=== PATIENT | male | born 1975 | race Caucasian/White ===

== ENCOUNTER 2017-03-05 19:01 | Emergency (ER) | payer MEDICARE, MEDICAID ==
[~2017-03-05] VITALS: Ht 144.8 cm; Wt 104.3 kg
[~2017-03-05 19:01] MED LIST changes: -ALB6.7R INH; -AMOX875T60 PO; -HYDR-4225 PO
--- NOTE | 2017-03-05 19:01 | ER Report ---
History and Physical Time Seen By MD: 19:00 HPI/ROS CHIEF COMPLAINT: Dizziness HISTORY OF PRESENT ILLNESS: 41-year-old male presents by ambulance complaining of dizziness. Patient has past medical history of COPD. Anxiety,? Schizophrenia. He is a frequent visitor our ER, but hasn't been into the department for 6 months. Patient has difficulty expressing his symptoms tonight. He has a mild headache. He denies shortness of breath, cough, rhinitis or sore throat. He denies chest pain. He denies leg swelling or calf pain. He is complaining of dizziness for the ambulance. Initially the ambulance call went out as a panic attack related to overdosing on fentanyl. When asked if having any specific symptoms. Patient is unable to relate any. He is reluctant to lie in the bed for evaluation. He wants to ambulate about the room. Patient's other complaint is he is unable to sleep. Patient states she's been out of his inhaler for months. REVIEW OF SYSTEMS: Respiratory: No cough, no dyspnea. Cardiovascular: No chest pain, no palpitations. Gastrointestinal: No vomiting, no abdominal pain. Musculoskeletal: No back pain. Allergies: Coded Allergies: No Known Drug Allergies (Unverified , 03/05/17) Home Meds Active Scripts Amoxicillin (AMOXICILLIN) 875 Mg Tablet, 1 TAB PO Q12H for infection, #14 TAB Prov:GISELLA ROSSI DO 03/05/17 Albuterol Sulfate (PROVENTIL HFA) 6.7 Gm Inh, 2 PUFF INH Q4-6H Y for difficulty breathing, #1 INH Prov:GISELLA ROSSI Omer DO 03/05/17 Hydroxyzine Hcl (HYDROXYZINE HCL) 25 Mg Tablet, 1-2 TAB PO Q6-8H Y for anxiety or sleep, #20 Prov:GISELLA ROSSI DO 03/05/17 Tramadol Hcl (ULTRAM) 50 Mg Tablet, 50-100 MG PO Q4-6H Y for PAIN, #20 TAB 0 Refills Prov:VIET GAINES MD 08/02/16 Omeprazole (OMEPRAZOLE) 40 Mg Capsule., 40 MG PO QDAY, #30 CAP 0 Refills Prov:GORDON GUTIERREZ MD 07/07/16 Past Medical/Surgical History COPD, anxiety Reviewed Nurses Notes: Yes Old Medical Records Reviewed: Yes Hx Smoking: Yes Smoking Status: Current: Every Day Smoker Hx Substance Use Disorder: No Hx Alcohol Use: No Constitutional Vital Sign - Last 24 Hours 03/05/17 19:04 Temp 97.6 Pulse 105 Resp 16 B/P (MAP) 151/99 Pulse Ox 93 O2 Delivery Room Air Physical Exam Vital signs stable, afebrile, pulse ox normal. General Appearance: The patient is alert, has no immediate need for airway protection and no current signs of toxicity. No acute distress, alert and oriented 3 HEENT: Pupils equal and round no injection. TMs normal, oropharynx with mild erythema, no exudate or petechiae Respiratory: Chest is non tender, lungs are clear to auscultation. Faint expiratory wheezing Cardiac: regular rate and rhythm Gastrointestinal: Abdomen is soft and non tender, no masses, bowel sounds normal. Musculoskeletal: Neck: Neck is supple and non tender. Extremities have full range of motion and are non tender. Skin: No rashes or lesions. DIFFERENTIAL DIAGNOSIS: After history and physical exam differential diagnosis was considered for? Schizophrenia, mood disorder, anxiety, COPD exacerbation, dizziness including but not limited to peripheral and central causes of vertigo , orthostatic causes including dehydration, and blood loss. Medical Decision Making Data Points Result Diagram: 03/05/17191903/05/171919 Laboratory Hematology Test 03/05/17 19:20 Red Blood Count 5.14 M/uL (4.00-5.60) Mean Corpuscular Volume 89.8 fL (80.0-96.0) Mean Corpuscular Hemoglobin 31.6 pg (26.0-33.0) Mean Corpuscular Hemoglobin Concent 35.2 g/dL (32.0-36.0) Red Cell Distribution Width 13.4 % (11.5-14.5) Mean Platelet Volume 9.3 fL (7.2-11.1) Neutrophils (%) (Auto) 64.5 % (39.4-72.5) Lymphocytes (%) (Auto) 24.6 % (17.6-49.6) Monocytes (%) (Auto) 6.5 % (4.1-12.4) Eosinophils (%) (Auto) 3.1 % (0.4-6.7) Basophils (%) (Auto) 1.3 % (0.3-1.4) Nucleated RBC Relative Count (auto) 0.0 /100WBC Neutrophils # (Auto) 9.5 K/uL (2.0-7.4) Lymphocytes # (Auto) 3.6 K/uL (1.3-3.6) Monocytes # (Auto) 1.0 K/uL (0.3-1.0) Eosinophils # (Auto) 0.5 K/uL (0.0-0.5) Basophils # (Auto) 0.2 K/uL (0.0-0.1) Nucleated RBC Absolute Count (auto) 0.01 K/uL Sodium Level 139 mmol/L (137-145) Potassium Level 3.6 mmol/L (3.5-5.0) Chloride Level 105 mmol/L (98-107) Carbon Dioxide Level 22 mmol/L (22-30) Blood Urea Nitrogen 11 mg/dl (9-21) Creatinine 0.90 mg/dl (0.66-1.25) Glomerular Filtration Rate Calc > 60.0 Random Glucose 120 mg/dl (75-110) Calcium Level 9.4 mg/dl (8.4-10.2) Total Bilirubin 0.3 mg/dl (0.2-1.3) Aspartate Amino Transf (AST/SGOT) 18 U/L (0-35) Alanine Aminotransferase (ALT/SGPT) 41 U/L (0-56) Alkaline Phosphatase 76 U/L (0-126) Total Protein 7.1 gm/dl (6.3-8.2) Albumin 4.1 g/dl (3.5-5.0) Chemistry Test 03/05/17 19:20 White Blood Count 14.7 k/uL (4.5-11.0) Red Blood Count 5.14 M/uL (4.00-5.60) Hemoglobin 16.3 g/dL (14.0-18.0) Hematocrit 46.2 % (42.0-52.0) Mean Corpuscular Volume 89.8 fL (80.0-96.0) Mean Corpuscular Hemoglobin 31.6 pg (26.0-33.0) Mean Corpuscular Hemoglobin Concent 35.2 g/dL (32.0-36.0) Red Cell Distribution Width 13.4 % (11.5-14.5) Platelet Count 199 K/uL (150-450) Mean Platelet Volume 9.3 fL (7.2-11.1) Neutrophils (%) (Auto) 64.5 % (39.4-72.5) Lymphocytes (%) (Auto) 24.6 % (17.6-49.6) Monocytes (%) (Auto) 6.5 % (4.1-12.4) Eosinophils (%) (Auto) 3.1 % (0.4-6.7) Basophils (%) (Auto) 1.3 % (0.3-1.4) Nucleated RBC Relative Count (auto) 0.0 /100WBC Neutrophils # (Auto) 9.5 K/uL (2.0-7.4) Lymphocytes # (Auto) 3.6 K/uL (1.3-3.6) Monocytes # (Auto) 1.0 K/uL (0.3-1.0) Eosinophils # (Auto) 0.5 K/uL (0.0-0.5) Basophils # (Auto) 0.2 K/uL (0.0-0.1) Nucleated RBC Absolute Count (auto) 0.01 K/uL Glomerular Filtration Rate Calc > 60.0 Calcium Level 9.4 mg/dl (8.4-10.2) Total Bilirubin 0.3 mg/dl (0.2-1.3) Aspartate Amino Transf (AST/SGOT) 18 U/L (0-35) Alanine Aminotransferase (ALT/SGPT) 41 U/L (0-56) Alkaline Phosphatase 76 U/L (0-126) Total Protein 7.1 gm/dl (6.3-8.2) Albumin 4.1 g/dl (3.5-5.0) EKG/Imaging EKG Interpretation 12 lead EK Rhythm: normal sinus rhythm with RSR in V1 suggesting incomplete [place] arrest block [place]: normal QRS: normal ST segments: normal , comparison to previous EKG dated 05/15/16. There is no significant change except now there is diffuse T-wave flattening noted. ED Course/Re-evaluation ED Course Patient was admitted to an examination room. H&P was done. The dental diagnoses was considered. Patient was stable vital signs. He has a variety of complaints, most seems psychosomatic. I suspect his illness is primarily mental health in nature. Patient may be bipolar manic or schizophrenic. He frequently presents to the ER with complaints that are spurious. He does have a history of COPD. He denies shortness of breath, productive cough or chest pain. Clinical examination. He has a fairly red and erythematous. Throat. He 'll be covered with amoxicillin for potential pharyngitis. Patient's albuterol inhalers refilled. He is given hydroxyzine for to help him sleep. He is advised to follow-up with primary care if unimproved in 3-5 days. Decision to Disposition Date: Mar 05, 2017 Decision to Disposition Time: 19:17 Depart Departure Latest Vital Signs Vital Signs Date Time Temp Pulse Resp B/P (MAP) Pulse Ox O2 Delivery O2 Flow Rate FiO2 03/05/17 19:04 97.6 105 16 151/99 93 Room Air Impression: Primary Impression: Dizziness Additional Impressions: Anxiety Pharyngitis COPD exacerbation Insomnia Mental health disorder Condition: Improved Disposition: HOME OR SELF-CARE Referrals: EMPERATRIZ MIN MD, FARRUKH MD New Scripts Amoxicillin (AMOXICILLIN) 875 Mg Tablet 1 TAB PO Q12H for infection, #14 TAB Prov: GISELLA ROSSI DO 03/05/17 Albuterol Sulfate (PROVENTIL HFA) 6.7 Gm Inh 2 PUFF INH Q4-6H Y for difficulty breathing, #1 INH Prov: GISELLA ROSSI DO 03/05/17 Hydroxyzine Hcl (HYDROXYZINE HCL) 25 Mg Tablet 1-2 TAB PO Q6-8H Y for anxiety or sleep, #20 Prov: GISELLA ROSSI DO 03/05/17 Patient Instructions: Anxiety (ED), Insomnia (ED), Pharyngitis (ED) Additional Instructions: Take medications as prescribed Follow-up with your primary care doctor if unimproved in 3-5 days Problem Qualifiers Additional Impressions: Pharyngitis Pharyngitis/tonsillitis etiology: unspecified etiology Qualified Codes: J02.9 - Acute pharyngitis, unspecified Insomnia Insomnia type: unspecified Qualified Codes: G47.00 - Insomnia, unspecified GISELLA ROSSI DO Mar 05, 2017 19:01
[2017-03-05 19:04] VITALS: BP 151/99
[2017-03-05] MEDS ORDERED: ALBUTEROL SULFATE 90 MCG/ACT 8.5 GM HNH INH PRN (19:15)
[2017-03-05] MEDS ORDERED: HYDR-4225 PO (19:22)
[2017-03-05 19:27] LABS: PLATELET COUNT, AUTOMATED 199 K/uL (150-450)
[2017-03-05] MEDS ORDERED: ALB6.7R INH (19:38)
[2017-03-05] MEDS ORDERED: AMOX875T60 PO (19:38)
--- NOTE | 2017-03-05 21:13 | EKG ---
FACILITY: [facility] - [place] PATIENT NAME: VIET PERAZA : [id number] MR: [id number] V: [id number] EXAM DATE: ORDERING PHYSICIAN: GISELLA ROSSI TECHNOLOGIST: BALDO Test Reason : DYSPNEA Blood Pressure : / mmHG Vent. Rate : 096 BPM Atrial Rate : 096 BPM P-R Int : 126 ms QRS Dur : 084 ms QT Int : 370 ms P-R-T Axes : 048 048 039 degrees QTc Int : 467 ms Normal sinus rhythm Borderline ECG When compared with ECG of 15-MAY-2016 16:56, No significant change was found Confirmed by ROSA MARIA OH ([id number]) on 03/06/2017 8:57:48 AM Referred By: Confirmed By:ROSA MARIA OH
== END 2017-03-05 19:57 | disposition home or self-care (01) ==
LOC: ER 19:05
DX: J02.9 Acute pharyngitis, unspecified (principal); G47.00 Insomnia, unspecified; R42 Dizziness and giddiness; F41.9 Anxiety disorder, unspecified; J44.1 Chronic obstructive pulmonary disease with (acute) exacerbation
CPT/HCPCS: 36415; 82040; 82247; 82310; 82374; 82435; 82565; 82947; 84075; 84132; 84155; 84295; 84450; 84460; 84520; 85025; 93005; 94640; 99283

== ENCOUNTER → 2017-03-05 | Outpatient (CLI) | payer MEDICARE, MEDICAID ==
[~2017-03-05] MED LIST: ALB18R INH; ALB6.7R INH; ALBU2.5V36 INH; AMOX500T10 PO; AMOX875T60 PO; BUDE10.2 INH; HYDR-4225 PO; METR-1 PO; OMEP-137 PO; OMEP40CA48 PO; TRAM-420 PO; TRAM-627 PO; [UNRECOGNIZED DRUG - CODE] TP
== END ==
LOC: AMB 18:46
PROVIDERS: ATTEND Nurse Practitioner
DX: R42 Dizziness and giddiness (principal)
CPT/HCPCS: A0425; A0427

== ENCOUNTER → 2017-04-18 | Outpatient (CLI) | payer MEDICARE, MEDICAID ==
[~2017-04-18] MED LIST changes: +ALB6.7R INH; +AMOX875T60 PO; +HYDR-4225 PO
== END ==
LOC: US 13:54
PROVIDERS: ATTEND Family Medicine
DX: Z02.9 Encounter for administrative examinations, unspecified (principal)

== ENCOUNTER → 2017-04-20 | Outpatient (CLI) | payer MEDICARE, MEDICAID ==
--- NOTE | 2017-04-20 17:16 | RADIOLOGY IMAGING REPORT ---
FACILITY: [facility] PATIENT NAME: Mao Aden : 1975 MR: [id number] V: [id number] EXAM DATE: ORDERING PHYSICIAN: HARSHAL JJ TECHNOLOGIST: Location: [facility] Patient: Mao Aden : 1975 Visit/Account:[id number] Date of Sevice: 04/20/2017 TESTICULAR HISTORY: Testicular pain x2 weeks COMPARISON: None. FINDINGS: Testes: Right testicle measures 4.6 x 2.9 x 3.4 cm. The left testicle measures 5.5 x 2.1 x 3.8 cm. Symmetric and unremarkable blood flow documented by color and Duplex Doppler ultrasound. Epididymides: The head epididymis on the right measures 0.83 cm. The head appearance on the left elizabeth sures 1.1 cm and appears slightly hypervascular and inhomogeneous. Blood flow is unremarkable in eac h epididymis by color Doppler ultrasound. Hydrocele: None. Varicocele: There is a left-sided varicocele. IMPRESSION: Left-sided varicocele The head epididymis on the left slightly hypervascular and inhomogeneous. Epididymitis cannot be tot ally excluded Report Dictated By: Olivia Harris MD at 04/20/2017 5:10 PM Report E-Signed By: Olivia Harris MD at 04/20/2017 5:12 PM WSN:[id number]
== END ==
LOC: US 15:32
PROVIDERS: ATTEND Family Medicine
DX: I86.1 Scrotal varices (principal)
CPT/HCPCS: 76870

== ENCOUNTER 2017-05-30 00:43 | Emergency (ER) | payer MEDICARE, MEDICAID ==
[~2017-05-30 00:43] MED LIST changes: -KET10 PO
--- NOTE | 2017-05-30 00:52 | ER Report ---
History and Physical Time Seen By MD: 00:42 HPI/ROS CHIEF COMPLAINT: left flank pain, kidney stone HISTORY OF PRESENT ILLNESS: This is a 42 year old male. He thinks he has a kidney stone. Had left flank pain start today. Similar to prior stones. Has not had a change in urine or blood. No problems with bowels. The pain does not worsen with anything, and nothing makes it better. Does wrap to his lower left abd a little. No fevers or chills. No shortness of breath or cough. No chest pain. Allergies: Coded Allergies: No Known Drug Allergies (Unverified , 05/30/17) Home Meds Active Scripts Ketorolac Tromethamine (KETOROLAC TROMETHAMINE) 10 Mg Tab, 10 MG PO Q6H Y for PAIN, #12 TAB 0 Refills Prov:GORDON GUTIERREZ MD 05/30/17 Albuterol Sulfate (PROVENTIL HFA) 6.7 Gm Inh, 2 PUFF INH Q4-6H Y for difficulty breathing, #1 INH Prov:GISELLA ROSSI DO 03/05/17 Hydroxyzine Hcl (HYDROXYZINE HCL) 25 Mg Tablet, 1-2 TAB PO Q6-8H Y for anxiety or sleep, #20 Prov:GISELLA ROSSI DO 03/05/17 Discontinued Scripts Amoxicillin (AMOXICILLIN) 875 Mg Tablet, 1 TAB PO Q12H for infection, #14 TAB Prov:GISELLA ROSSI DO 03/05/17 Tramadol Hcl (ULTRAM) 50 Mg Tablet, 50-100 MG PO Q4-6H Y for PAIN, #20 TAB 0 Refills Prov:VIET GAINES MD 08/02/16 Omeprazole (OMEPRAZOLE) 40 Mg Capsule., 40 MG PO QDAY, #30 CAP 0 Refills Prov:GORDON GUTIERREZ MD 07/07/16 Reviewed Nurses Notes: Yes Hx Smoking: Yes Smoking Status: Current: Every Day Smoker Hx Substance Use Disorder: No Hx Alcohol Use: No Constitutional Vital Sign - Last 24 Hours 05/30/17 05/30/17 05/30/17 05/30/17 00:51 01:00 01:10 01:20 Temp 98.2 Pulse 90 ? Resp 20 B/P (MAP) 125/82 Pulse Ox 94 4/23/05/30/17 05/30/17 05/30/17 01:30 01:40 02:00 02:10 Pulse 96 91 103 92 Pulse Ox 94 93 92 05/30/17 02:25 Pulse 85 Resp 16 B/P (MAP) 148/88 (108) Pulse Ox 92 O2 Delivery Room Air Physical Exam General Appearance: The patient is alert. No acute distress. Eyes: Pupils are equal, round. No pallor, injection or icterus. ENT: Mucous membranes are moist. Normal oral mucosa. Posterior oropharynx is normal. Respiratory: Lungs are clear to auscultation. Cardiovascular: Regular rate and rhythm. No murmurs, gallops or rubs. Normal capillary refill. Gastrointestinal: Abdomen is soft, some discomfort with palpation of the left lower abdomen. Nondistended. No rebound or guarding. Normal active bowel sounds. Left CVA tenderness with percussion. Neurological: Alert and oriented x3. Skin: Warm and dry. No rashes. Musculoskeletal: Extremities are nontender. No tenderness in palpation of the thoracic and lumbar spine. DIFFERENTIAL DIAGNOSIS: After history and physical exam, differential diagnosis was considered for flank pain including but not limited to musculoskeletal causes, kidney stone, pyelonephritis, shingles, and intra-abdominal causes such as diverticulitis and appendicitis. Medical Decision Making Data Points Result Diagram: 05/30/17 0047 05/30/17 0047 Laboratory Hematology Test 05/30/17 00:47 05/30/17 01:03 Red Blood Count 5.28 M/uL (4.00-5.60) Mean Corpuscular Volume 90.8 fL (80.0-96.0) Mean Corpuscular Hemoglobin 31.9 pg (26.0-33.0) Mean Corpuscular Hemoglobin Concent 35.2 g/dL (32.0-36.0) Red Cell Distribution Width 13.7 % (11.5-14.5) Mean Platelet Volume 9.9 fL (7.2-11.1) Neutrophils (%) (Auto) 59.5 % (39.4-72.5) Lymphocytes (%) (Auto) 26.6 % (17.6-49.6) Monocytes (%) (Auto) 9.9 % (4.1-12.4) Eosinophils (%) (Auto) 2.6 % (0.4-6.7) Basophils (%) (Auto) 1.4 % (0.3-1.4) Nucleated RBC Relative Count (auto) 0.0 /100WBC Neutrophils # (Auto) 8.1 K/uL (2.0-7.4) Lymphocytes # (Auto) 3.6 K/uL (1.3-3.6) Monocytes # (Auto) 1.4 K/uL (0.3-1.0) Eosinophils # (Auto) 0.4 K/uL (0.0-0.5) Basophils # (Auto) 0.2 K/uL (0.0-0.1) Nucleated RBC Absolute Count (auto) 0.00 K/uL Sodium Level 139 mmol/L (137-145) Potassium Level 3.8 mmol/L (3.5-5.0) Chloride Level 104 mmol/L (98-107) Carbon Dioxide Level 22 mmol/L (22-30) Blood Urea Nitrogen 10 mg/dl (9-21) Creatinine 1.00 mg/dl (0.66-1.25) Glomerular Filtration Rate Calc > 60.0 Random Glucose 121 mg/dl (75-110) Calcium Level 8.9 mg/dl (8.4-10.2) Total Bilirubin 0.4 mg/dl (0.2-1.3) Aspartate Amino Transf (AST/SGOT) 23 U/L (0-35) Alanine Aminotransferase (ALT/SGPT) 44 U/L (0-56) Alkaline Phosphatase 86 U/L (0-126) Total Protein 7.1 gm/dl (6.3-8.2) Albumin 4.1 g/dl (3.5-5.0) Urine Color Yellow Urine Clarity Clear Urine pH 5.0 pH (4.8-9.5) Urine Specific [place] 1.025 Urine Protein Negative mg/dL (NEGATIVE) Urine Glucose (UA) Negative mg/dL (NEGATIVE) Urine Ketones Trace mg/dL (NEGATIVE) Urine Blood Negative (NEGATIVE) Urine Nitrite Negative (NEGATIVE) Urine Bilirubin Negative (NEGATIVE) Urine Urobilinogen 4.0 mg/dL (0.2-1.9) Urine Leukocyte Esterase Negative (NEGATIVE) Urine RBC <1 /HPF (0-2/HPF) Urine WBC 1 /HPF (0-5/HPF) Urine Squamous Epithelial Cells Few /LPF (</=FEW) Urine Bacteria Negative /HPF (NONE-FEW) Urine Mucus Few /HPF (NONE-FEW) Chemistry Test 05/30/17 00:47 05/30/17 01:03 White Blood Count 13.6 k/uL (4.5-11.0) Red Blood Count 5.28 M/uL (4.00-5.60) Hemoglobin 16.9 g/dL (14.0-18.0) Hematocrit 47.9 % (42.0-52.0) Mean Corpuscular Volume 90.8 fL (80.0-96.0) Mean Corpuscular Hemoglobin 31.9 pg (26.0-33.0) Mean Corpuscular Hemoglobin Concent 35.2 g/dL (32.0-36.0) Red Cell Distribution Width 13.7 % (11.5-14.5) Platelet Count 197 K/uL (150-450) Mean Platelet Volume 9.9 fL (7.2-11.1) Neutrophils (%) (Auto) 59.5 % (39.4-72.5) Lymphocytes (%) (Auto) 26.6 % (17.6-49.6) Monocytes (%) (Auto) 9.9 % (4.1-12.4) Eosinophils (%) (Auto) 2.6 % (0.4-6.7) Basophils (%) (Auto) 1.4 % (0.3-1.4) Nucleated RBC Relative Count (auto) 0.0 /100WBC Neutrophils # (Auto) 8.1 K/uL (2.0-7.4) Lymphocytes # (Auto) 3.6 K/uL (1.3-3.6) Monocytes # (Auto) 1.4 K/uL (0.3-1.0) Eosinophils # (Auto) 0.4 K/uL (0.0-0.5) Basophils # (Auto) 0.2 K/uL (0.0-0.1) Nucleated RBC Absolute Count (auto) 0.00 K/uL Glomerular Filtration Rate Calc > 60.0 Calcium Level 8.9 mg/dl (8.4-10.2) Total Bilirubin 0.4 mg/dl (0.2-1.3) Aspartate Amino Transf (AST/SGOT) 23 U/L (0-35) Alanine Aminotransferase (ALT/SGPT) 44 U/L (0-56) Alkaline Phosphatase 86 U/L (0-126) Total Protein 7.1 gm/dl (6.3-8.2) Albumin 4.1 g/dl (3.5-5.0) Urine Color Yellow Urine Clarity Clear Urine pH 5.0 pH (4.8-9.5) Urine Specific [place] 1.025 Urine Protein Negative mg/dL (NEGATIVE) Urine Glucose (UA) Negative mg/dL (NEGATIVE) Urine Ketones Trace mg/dL (NEGATIVE) Urine Blood Negative (NEGATIVE) Urine Nitrite Negative (NEGATIVE) Urine Bilirubin Negative (NEGATIVE) Urine Urobilinogen 4.0 mg/dL (0.2-1.9) Urine Leukocyte Esterase Negative (NEGATIVE) Urine RBC <1 /HPF (0-2/HPF) Urine WBC 1 /HPF (0-5/HPF) Urine Squamous Epithelial Cells Few /LPF (</=FEW) Urine Bacteria Negative /HPF (NONE-FEW) Urine Mucus Few /HPF (NONE-FEW) Urinalysis Test 05/30/17 01:03 Urine Color Yellow Urine Clarity Clear Urine pH 5.0 pH (4.8-9.5) Urine Specific [place] 1.025 Urine Protein Negative mg/dL (NEGATIVE) Urine Glucose (UA) Negative mg/dL (NEGATIVE) Urine Ketones Trace mg/dL (NEGATIVE) Urine Blood Negative (NEGATIVE) Urine Nitrite Negative (NEGATIVE) Urine Bilirubin Negative (NEGATIVE) Urine Urobilinogen 4.0 mg/dL (0.2-1.9) Urine Leukocyte Esterase Negative (NEGATIVE) Urine RBC <1 /HPF (0-2/HPF) Urine WBC 1 /HPF (0-5/HPF) Urine Squamous Epithelial Cells Few /LPF (</=FEW) Urine Bacteria Negative /HPF (NONE-FEW) Urine Mucus Few /HPF (NONE-FEW) EKG/Imaging Imaging CT of the abdomen and pelvis with contrast: Indication: Left flank pain. Technique: Helical CT was performed through the abdomen and pelvis following IV contrast enhancement with 75 cc of Isovue-370. Multiplanar reconstructions are reviewed. One of the following dose optimization techniques was utilized in the performance of this exam: Automated exposure control; adjustment of the mA and/ or kV according to the patient's size; or use of an iterative reconstruction technique. Specific details can be referenced in the facility's radiology CT exam operational policy. Comparison: None. Lower lung phillips: No parenchymal or pleural abnormality is identified. Liver: Mildly enlarged. The right lobe measures 22.1 cm. There appears to be diffuse fatty infiltration. No focal liver lesions are identified. There is uniform enhancement of the venous structures. Gallbladder/biliary tree: The gallbladder is normal in size and homogeneous in density. The bile ducts are normal in caliber. Pancreas: Normal in size, shape, and density. Spleen: Normal in size, shape, and density. A tiny accessory spleen is incidentally noted. Adrenal glands: There are bilateral well-circumscribed, hypodense adrenal nodules, measuring 2.9 cm on the left and 1.9 cm on the right. These may represent adenomas, but other etiologies are not excluded. Additional clinical correlation is recommended. There are no signs of adrenal hemorrhage. Kidneys/urinary bladder: The kidneys are normal in size, shape, and density. There are no signs of focal parenchymal abnormality, urinary tract calculus, or obstruction. The urinary bladder appears homogeneous and unremarkable. Intestinal structures: Unremarkable, as visualized. There are no signs of obstruction or focal inflammatory changes. There is no evidence of acute diverticulitis or appendicitis. Pelvis: Bilateral small, uncomplicated inguinal hernias are present. Otherwise unremarkable. Aorta and vascular structures: Within normal limits. Ascites or fluid collections: None seen. Skeletal structures: Intact and unremarkable. Impression: No acute process is identified in the abdomen or pelvis. There are bilateral well-circumscribed, hypodense adrenal nodules, which may represent adenomas. Other etiologies are not excluded. Additional clinical correlation is recommended. Report Dictated By: Rohan Arevalo MD at 05/30/2017 1:40 AM ED Course/Re-evaluation Clinical Indication for ER IV: Hydration, IV Access ED Course Improvement in pain after 30mg IV Toradol. Patient had normal labs, urinalysis and CT scan as noted above. Reviewed these findings with the patient. Home with Toradol for pain. Rest and increase fluids. Decision to Disposition Date: May 30, 2017 Decision to Disposition Time: 02:12 Depart Departure Latest Vital Signs Vital Signs Date Time Temp Pulse Resp B/P (MAP) Pulse Ox O2 Delivery O2 Flow Rate FiO2 05/30/17 02:25 85 16 148/88 (108) 92 Room Air 05/30/17 00:51 98.2 Impression: Primary Impression: Flank pain, acute Condition: Improved Disposition: HOME OR SELF-CARE New Scripts Ketorolac Tromethamine (KETOROLAC TROMETHAMINE) 10 Mg Tab 10 MG PO Q6H Y for PAIN, #12 TAB 0 Refills Prov: GORDON GUTIERREZ MD 05/30/17 Patient Instructions: Flank Pain (ED) Additional Instructions: Rest and increase fluids. No abnormalities noted on CT scan and labs tonight. Take Toradol 10mg, one every 6 hours as needed for pain. GORDON GUTIERREZ MD May 30, 2017 00:52
[2017-05-30] MEDS ORDERED: ONDANSETRON 4 MG/2 ML VIAL IVP ONE (00:55)
[2017-05-30] MEDS ORDERED: KETOROLAC 30 MG/ML VIAL IVP ONE (00:55)
[2017-05-30] MEDS ORDERED: NS(*) 0.9% 1000 ML BAG 1,000 ML IV ONE (00:55)
[2017-05-30] MEDS ORDERED: IOPAMIDOL 76% 75 ML INFUS BTL 75 ML ONE (01:02)
[2017-05-30 01:03] LABS: PLATELET COUNT, AUTOMATED 197 K/uL (150-450)
--- NOTE | 2017-05-30 02:00 | RADIOLOGY IMAGING REPORT ---
FACILITY: [facility] PATIENT NAME: Mao Aden : 1975 MR: [id number] V: [id number] EXAM DATE: ORDERING PHYSICIAN: GORDON GUTIERREZ TECHNOLOGIST: Location: [facility] [place] Patient: Mao Aden : 1975 Visit/Account:[id number] Date of Sevice: 05/30/2017 CT of the abdomen and pelvis with contrast: Indication: Left flank pain. Technique: Helical CT was performed through the abdomen and pelvis following IV contrast enhancement with 75 cc of Isovue-370. Multiplanar reconstructions are reviewed. One of the following dose optimization techniques was utilized in the performance of this exam: Autom ated exposure control; adjustment of the mA and/or kV according to the patient's size; or use of an i terative reconstruction technique. Specific details can be referenced in the facility's radiology C T exam operational policy. Comparison: None. Lower lung phillips: No parenchymal or pleural abnormality is identified. Liver: Mildly enlarged. The right lobe measures 22.1 cm. There appears to be diffuse fatty infiltrati on. No focal liver lesions are identified. There is uniform enhancement of the venous structures. Gallbladder/biliary tree: The gallbladder is normal in size and homogeneous in density. The bile duct s are normal in caliber. Pancreas: Normal in size, shape, and density. Spleen: Normal in size, shape, and density. A tiny accessory spleen is incidentally noted. Adrenal glands: There are bilateral well-circumscribed, hypodense adrenal nodules, measuring 2.9 cm o n the left and 1.9 cm on the right. These may represent adenomas, but other etiologies are not exclud ed. Additional clinical correlation is recommended. There are no signs of adrenal hemorrhage. Kidneys/urinary bladder: The kidneys are normal in size, shape, and density. There are no signs of fo madeline parenchymal abnormality, urinary tract calculus, or obstruction. The urinary bladder appears homogeneous and unremarkable. Intestinal structures: Unremarkable, as visualized. There are no signs of obstruction or focal inflam matory changes. There is no evidence of acute diverticulitis or appendicitis. Pelvis: Bilateral small, uncomplicated inguinal hernias are present. Otherwise unremarkable. Aorta and vascular structures: Within normal limits. Ascites or fluid collections: None seen. Skeletal structures: Intact and unremarkable. Impression: No acute process is identified in the abdomen or pelvis. There are bilateral well-circums cribed, hypodense adrenal nodules, which may represent adenomas. Other etiologies are not excluded. A dditional clinical correlation is recommended. Report Dictated By: Rohan Arevalo MD at 05/30/2017 1:40 AM Report E-Signed By: Rohan Arevalo MD at 05/30/2017 1:55 AM WSN:[id number]
[2017-05-30] MEDS ORDERED: KET10 PO (02:15)
[2017-05-30] MEDS ORDERED: KETOROLAC TROM 10 MG TAB TH PO ONE (02:15)
[2017-05-30 02:25] VITALS: BP 148/88
== END 2017-05-30 02:30 | disposition home or self-care (01) ==
LOC: ER 01:05
DX: R10.32 Left lower quadrant pain (principal); F17.210 Nicotine dependence, cigarettes, uncomplicated
CPT/HCPCS: 74177; 81001; 85025; 96361; 96374; 96375; 99283; J1885; J2405; J7030; Q9967; 82040; 82247; 82310; 82374; 82435; 82565; 82947; 84075; 84132; 84155; 84295; 84450; 84460; 84520

== ENCOUNTER → 2017-05-30 | Outpatient (CLI) | payer MEDICARE, MEDICAID ==
[~2017-05-30] MED LIST changes: +KET10 PO
== END ==
LOC: AMB 00:32
PROVIDERS: ATTEND Nurse Practitioner
DX: N23 Unspecified renal colic (principal); R10.84 Generalized abdominal pain
CPT/HCPCS: A0425; A0427

== ENCOUNTER 2017-06-15 17:27 | Emergency (ER) | payer MEDICARE, MEDICAID ==
[~2017-06-15 17:27] MED LIST changes: +KET10 PO
[2017-06-15 17:33] VITALS: BP 134/94
--- NOTE | 2017-06-15 17:36 | ER Report ---
History and Physical Time Seen By MD: 17:35 HPI/ROS CHIEF COMPLAINT: Shortness of breath secondary to injection HISTORY OF PRESENT ILLNESS: This is a 42-year-old male who presents to the emergency department for shortness breath. Patient states that he received an injection at [facility] today and since then he's felt short of breath, but no chest pain. Patient's states the injections "keep changing"and is unsure what the medication was and what it was for. Upon checking in the patient went outside to smoke before the nursing staff was able to bring him back to be roomed. Patient denies nausea, vomiting, diarrhea, headaches, aches, chills or rashes. REVIEW OF SYSTEMS: Constitutional: No fever, no chills. Eyes: No discharge. ENT: No sore throat. Cardiovascular: No chest pain, no palpitations. Respiratory: As above. Gastrointestinal: No abdominal pain, no vomiting. Genitourinary: No hematuria. Musculoskeletal: No back pain. Skin: No rashes. Neurological: No headache. Allergies: Coded Allergies: No Known Drug Allergies (Unverified , 06/15/17) Home Meds Active Scripts Albuterol Sulfate (PROVENTIL HFA) 6.7 Gm Inh, 2 PUFF INH Q4-6H Y for difficulty breathing, #1 INH Prov:GISELLA ROSSI DO 03/05/17 Hydroxyzine Hcl (HYDROXYZINE HCL) 25 Mg Tablet, 1-2 TAB PO Q6-8H Y for anxiety or sleep, #20 Prov:GISELLA ROSSI DO 03/05/17 Discontinued Scripts Ketorolac Tromethamine (KETOROLAC TROMETHAMINE) 10 Mg Tab, 10 MG PO Q6H Y for PAIN, #12 TAB 0 Refills Prov:GORDON GUTIERREZ MD 05/30/17 Past Medical/Surgical History Patient has a past medical and surgical history of COPD, left collarbone fracture, wears glasses, anxiety. Reviewed Nurses Notes: Yes Hx Smoking: Yes Smoking Status: Current: Every Day Smoker Hx Substance Use Disorder: No Hx Alcohol Use: No Constitutional Vital Sign - Last 24 Hours 06/15/17 17:33 Temp 97.6 Pulse 121 Resp 16 B/P (MAP) 134/94 Pulse Ox 92 O2 Delivery Room Air Physical Exam General Appearance: The patient is alert, has no immediate need for airway protection and no signs of toxicity, slightly anxious, strong smell of smoke. Eyes: Pupils equal and round no pallor or injection. ENT, Mouth: Mucous membranes are dry. Respiratory: There are no retractions, lungs are clear to auscultation. Cardiovascular: Regular rate and rhythm, no murmurs, clicks or rubs. Gastrointestinal: Abdomen is soft and non tender, no masses, bowel sounds normal. Neurological: Alert and oriented 4. Moving all extremities. Following all commands. No focal neuro deficits. Skin: Warm and dry, no rashes. Musculoskeletal: Neck is supple non tender. Extremities are nontender, nonswollen and have full range of motion. DIFFERENTIAL DIAGNOSIS: After history and physical exam differential diagnosis was considered for shortness of breath including but not limited to pulmonary infectious process, COPD, asthma, pulmonary embolus and congestive heart failure. Medical Decision Making Data Points Result Diagram: 06/15/17 1759 06/15/17 1759 Laboratory Hematology Test 06/15/17 17:59 Red Blood Count 5.10 M/uL (4.00-5.60) Mean Corpuscular Volume 89.7 fL (80.0-96.0) Mean Corpuscular Hemoglobin 31.6 pg (26.0-33.0) Mean Corpuscular Hemoglobin Concent 35.2 g/dL (32.0-36.0) Red Cell Distribution Width 13.3 % (11.5-14.5) Mean Platelet Volume 9.0 fL (7.2-11.1) Neutrophils (%) (Auto) 67.4 % (39.4-72.5) Lymphocytes (%) (Auto) 20.8 % (17.6-49.6) Monocytes (%) (Auto) 8.9 % (4.1-12.4) Eosinophils (%) (Auto) 2.8 % (0.4-6.7) Basophils (%) (Auto) 0.1 % (0.3-1.4) Nucleated RBC Relative Count (auto) 0.0 /100WBC Neutrophils # (Auto) 10.6 K/uL (2.0-7.4) Lymphocytes # (Auto) 3.3 K/uL (1.3-3.6) Monocytes # (Auto) 1.4 K/uL (0.3-1.0) Eosinophils # (Auto) 0.4 K/uL (0.0-0.5) Basophils # (Auto) 0.0 K/uL (0.0-0.1) Nucleated RBC Absolute Count (auto) 0.00 K/uL D-Dimer Quantitative (PE/DVT) 0.58 ug/ml (0-0.50) Sodium Level 139 mmol/L (137-145) Potassium Level 3.7 mmol/L (3.5-5.0) Chloride Level 104 mmol/L (98-107) Carbon Dioxide Level 20 mmol/L (22-30) Blood Urea Nitrogen 14 mg/dl (9-21) Creatinine 1.00 mg/dl (0.66-1.25) Glomerular Filtration Rate Calc > 60.0 Random Glucose 139 mg/dl (75-110) Calcium Level 9.6 mg/dl (8.4-10.2) Total Bilirubin 0.2 mg/dl (0.2-1.3) Aspartate Amino Transf (AST/SGOT) 21 U/L (0-35) Alanine Aminotransferase (ALT/SGPT) 28 U/L (0-56) Alkaline Phosphatase 79 U/L (0-126) Troponin I < 0.012 ng/ml Total Protein 6.8 gm/dl (6.3-8.2) Albumin 4.0 g/dl (3.5-5.0) Chemistry Test 06/15/17 17:59 White Blood Count 15.7 k/uL (4.5-11.0) Red Blood Count 5.10 M/uL (4.00-5.60) Hemoglobin 16.1 g/dL (14.0-18.0) Hematocrit 45.7 % (42.0-52.0) Mean Corpuscular Volume 89.7 fL (80.0-96.0) Mean Corpuscular Hemoglobin 31.6 pg (26.0-33.0) Mean Corpuscular Hemoglobin Concent 35.2 g/dL (32.0-36.0) Red Cell Distribution Width 13.3 % (11.5-14.5) Platelet Count 232 K/uL (150-450) Mean Platelet Volume 9.0 fL (7.2-11.1) Neutrophils (%) (Auto) 67.4 % (39.4-72.5) Lymphocytes (%) (Auto) 20.8 % (17.6-49.6) Monocytes (%) (Auto) 8.9 % (4.1-12.4) Eosinophils (%) (Auto) 2.8 % (0.4-6.7) Basophils (%) (Auto) 0.1 % (0.3-1.4) Nucleated RBC Relative Count (auto) 0.0 /100WBC Neutrophils # (Auto) 10.6 K/uL (2.0-7.4) Lymphocytes # (Auto) 3.3 K/uL (1.3-3.6) Monocytes # (Auto) 1.4 K/uL (0.3-1.0) Eosinophils # (Auto) 0.4 K/uL (0.0-0.5) Basophils # (Auto) 0.0 K/uL (0.0-0.1) Nucleated RBC Absolute Count (auto) 0.00 K/uL D-Dimer Quantitative (PE/DVT) 0.58 ug/ml (0-0.50) Glomerular Filtration Rate Calc > 60.0 Calcium Level 9.6 mg/dl (8.4-10.2) Total Bilirubin 0.2 mg/dl (0.2-1.3) Aspartate Amino Transf (AST/SGOT) 21 U/L (0-35) Alanine Aminotransferase (ALT/SGPT) 28 U/L (0-56) Alkaline Phosphatase 79 U/L (0-126) Troponin I < 0.012 ng/ml Total Protein 6.8 gm/dl (6.3-8.2) Albumin 4.0 g/dl (3.5-5.0) Coagulation Test 06/15/17 17:59 D-Dimer Quantitative (PE/DVT) 0.58 ug/ml EKG/Imaging EKG Interpretation 12 lead EKG: Time of EKG 1751. Rhythm: Sinus tachycardia, ventricular rate 118 bpm. [place]: normal QRS: normal ST segments: No ST depression or elevation identified, poor T-wave progression. No significant changes from the 03/05/2017 EKG other than the rate. Imaging Location: [facility] Patient: Mao Aden : 1975 Visit/Account:[id number] Date of Sevice: 06/15/2017 2 VIEWS CHEST INDICATION: Respiratory distress. History of smoking. COMPARISON: 05/15/2016. FINDINGS: Cardiac silhouette is enlarged compared to the previous examination. Mediastinal silhouette and pulmonary vessels are within normal limits. There is no focal infiltrate or lobar consolidation. There is no pneumothorax or pleural effusion. No discrete nodule. Upper abdomen is unremarkable. No acute bony abnormality. Old left clavicle fracture. IMPRESSION: 1. Cardiac silhouette is enlarged compared previous examination. This could be secondary to mild cardiomegaly or pericardial effusion. 2. Lungs are clear. Report Dictated By: Juan Rodriguez at 06/15/2017 7:21 PM Report E-Signed By: Juan Rodriguez at 06/15/2017 7:23 PM WSN:[id number] Location: [facility] Patient: Mao Aden : 1975 Visit/Account:[id number] Date of Sevice: 06/15/2017 CT angiogram chest with contrast Indication: Shortness of breath. Rapid heart rate. Elevated d-dimer. History of smoking. Comparison: None available. Technique: Axial CT images are obtained through the chest after administration of 75 mL Isovue 370 IV contrast. Reformatted coronal and sagittal images were reviewed as well as coronal MIP images. One of the following dose optimization techniques was utilized in the performance of this exam: automated exposure control; adjustment of the mA and/ or kV according to the patient's size; or use of an iterative reconstruction technique. Specific details can be referenced in the facility's radiology CT exam operational policy. FINDINGS: No evidence of filling defect within the pulmonary vasculature to suggest pulmonary embolus. The heart is normal size without pericardial effusion. There is prominent pericardial fat pad present. The aorta shows no aneurysm or dissection. The mediastinum and hilar regions show no enlarged lymph node or abnormal density. Lungs show no consolidation, pleural effusion, pneumothorax, discrete nodule or focal interstitial opacity. Airways are clear. Bony structures show no acute fracture. Old left clavicular fracture. No aggressive bony lesions. Bone island seen in the right fourth rib. Mild degenerative changes spine. Chest wall shows no enlarged axillary lymph nodes or masses. Bilateral adrenal gland nodules are again present, left measuring 3.6 x 2.0 cm and the right measuring 2.7 x 1.7 cm but these are not significantly changed from the CT of abdomen pelvis on 05/30/2017. Upper abdomen is otherwise unremarkable. IMPRESSION: 1. No evidence of pulmonary embolus. 2. No acute cardiothoracic abnormality 3. Stable bilateral adrenal gland nodules, indeterminate. Report Dictated By: Juan Rodriguez at 06/15/2017 7:23 PM Report E-Signed By: Juan Rodriguez at 06/15/2017 7:32 PM WSN:[id number] ED Course/Re-evaluation Clinical Indication for ER IV: IV Access ED Course The patient was noted to room. History and physical were obtained. Differential diagnoses were considered. An IV was started. A CBC, CMP, troponin and d-dimer were obtained.Lab studies showing the WBCs 15.7, CO2 20, negative troponin, positive d-dimer. The two-view chest x-ray showing cardiac enlarged compared to previous examination. Could be secondary to mild cardiomegaly or pericardial effusion lungs are clear. CTA negative for pulmonary embolus or pericardial effusion. I did review these results with the patient. I did tell the patient that this could possibly be due to his anxiety. I also encouraged the patient follow up with his primary care provider and [facility] regarding his injections. Patient was in agreement with this plan of care and other questions or concerns this time and discharged home. Patient had no shortness of breath at the time of discharge. 06/15/2017 5:53:18 pm after further investigation it appears that the patient' s injection was fluphenazine decanote, and antipsychotic. This appears to be a 2nd injection that he is received. Decision to Disposition Date: June 15, 2017 Decision to Disposition Time: 19:47 Depart Departure Latest Vital Signs Vital Signs Date Time Temp Pulse Resp B/P (MAP) Pulse Ox O2 Delivery O2 Flow Rate FiO2 06/15/17 17:33 97.6 121 16 134/94 92 Room Air Impression: Primary Impression: Shortness of breath Condition: Improved Disposition: HOME OR SELF-CARE Patient Instructions: Dyspnea (ED) Additional Instructions: Drink plenty of water. Get plenty of rest. Follow-up with [facility] regarding your injections. Follow-up with your primary care provider as needed. Strongly consider smoking cessation. Return to the ED for any other concerns or worsening symptoms. AGATHA COLLINS BUILDING MAINTENANCE MECHANIC-BC June 15, 2017 17:36
--- NOTE | 2017-06-15 17:56 | EKG ---
FACILITY: [facility] - [place] PATIENT NAME: VIET PERAZA : [id number] MR: [id number] V: [id number] EXAM DATE: ORDERING PHYSICIAN: AGAHTA COLLINS TECHNOLOGIST: Praveen Stallworth Reason : Blood Pressure : / mmHG Vent. Rate : 118 BPM Atrial Rate : 118 BPM P-R Int : 120 ms QRS Dur : 090 ms QT Int : 320 ms P-R-T Axes : 032 056 056 degrees QTc Int : 448 ms Sinus tachycardia RSR' or QR pattern in V1 suggests right ventricular conduction delay Borderline ECG When compared with ECG of 05-MAR-2017 19:29, No significant change was found Confirmed by ROSA MARIA OH ([id number]) on 06/17/2017 11:21:26 AM Referred By: Confirmed By:ROSA MARIA OH
[2017-06-15 18:11] LABS: PLATELET COUNT, AUTOMATED 232 K/uL (150-450)
[2017-06-15] MEDS ORDERED: IOPAMIDOL 76% 75 ML INFUS BTL 75 ML ONE (18:43)
[2017-06-15] MEDS ORDERED: NS 0.9% 150 ML BAG 150 ML ONE (18:43)
--- NOTE | 2017-06-15 19:26 | RADIOLOGY IMAGING REPORT ---
FACILITY: [facility] [place] PATIENT NAME: Mao Aden : 1975 MR: [id number] V: [id number] EXAM DATE: ORDERING PHYSICIAN: AGATHA COLLINS TECHNOLOGIST: [place] [facility] [place] Mao Aden : 1975 Visit/Account:[id number] Date of Sevice: 06/15/2017 ADDENDUM #[address] scan of the chest was performed after chest x-ray. The enlarged cardiac silhouette on chest x-ra y is due to prominent pericardial fat seen on the CT scan. Report Dictated By: Juan Rodriguez at 06/15/2017 7:32 PM Report E-Signed By: Juan Rodriguez at 06/15/2017 7:33 PM ORIGINAL REPORT 2 VIEWS CHEST INDICATION: Respiratory distress. History of smoking. COMPARISON: 05/15/2016. FINDINGS: Cardiac silhouette is enlarged compared to the previous examination. Mediastinal silhouette and pulmo nary vessels are within normal limits. There is no focal infiltrate or lobar consolidation. There is no pneumothorax or pleural effusion. No discrete nodule. Upper abdomen is unremarkable. No acute bony abnormality. Old left clavicle fracture. IMPRESSION: 1. Cardiac silhouette is enlarged compared previous examination. This could be secondary to mild card iomegaly or pericardial effusion. 2. Lungs are clear. Report Dictated By: Juan Rodriguez at 06/15/2017 7:21 PM Report E-Signed By: Juan Rodriguez at 06/15/2017 7:23 PM WSN:[id number]
--- NOTE | 2017-06-15 19:36 | RADIOLOGY IMAGING REPORT ---
FACILITY: [facility] PATIENT NAME: Mao Aden : 1975 MR: [id number] V: [id number] EXAM DATE: ORDERING PHYSICIAN: AGATHA COLLINS TECHNOLOGIST: Location: [facility] [place] Patient: Mao Aden : 1975 Visit/Account:[id number] Date of Sevice: 06/15/2017 CT angiogram chest with contrast Indication: Shortness of breath. Rapid heart rate. Elevated d-dimer. History of smoking. Comparison: None available. Technique: Axial CT images are obtained through the chest after administration of 75 mL Isovue 370 IV contrast. Reformatted coronal and sagittal images were reviewed as well as coronal MIP images. One of the following dose optimization techniques was utilized in the performance of this exam: auto mated exposure control; adjustment of the mA and/or kV according to the patient's size; or use of an iterative reconstruction technique. Specific details can be referenced in the facility's radiology C T exam operational policy. FINDINGS: No evidence of filling defect within the pulmonary vasculature to suggest pulmonary embolus. The heart is normal size without pericardial effusion. There is prominent pericardial fat pad present . The aorta shows no aneurysm or dissection. The mediastinum and hilar regions show no enlarged lymph node or abnormal density. Lungs show no consolidation, pleural effusion, pneumothorax, discrete nodule or focal interstitial op acity. Airways are clear. Bony structures show no acute fracture. Old left clavicular fracture. No aggressive bony lesions. [place] seen in the right fourth rib. Mild degenerative changes spine. Chest wall shows no enlarged axillary lymph nodes or masses. Bilateral adrenal gland nodules are again present, left measuring 3.6 x 2.0 cm and the right measurin g 2.7 x 1.7 cm but these are not significantly changed from the CT of abdomen pelvis on 05/30/2017. Up per abdomen is otherwise unremarkable. IMPRESSION: 1. No evidence of pulmonary embolus. 2. No acute cardiothoracic abnormality 3. Stable bilateral adrenal gland nodules, indeterminate. Report Dictated By: Juan Rodriguez at 06/15/2017 7:23 PM Report E-Signed By: Juan Rodriguez at 06/15/2017 7:32 PM WSN:[id number]
== END 2017-06-15 19:54 | disposition home or self-care (01) ==
LOC: ER 17:43
DX: R06.02 Shortness of breath (principal); F17.210 Nicotine dependence, cigarettes, uncomplicated
CPT/HCPCS: 71046; 71275; 84484; 85025; 85379; 93005; 99283; Q9967; 82040; 82247; 82310; 82374; 82435; 82565; 82947; 84075; 84132; 84155; 84295; 84450; 84460; 84520

== ENCOUNTER 2017-06-23 17:37 | Emergency (ER) | payer MEDICARE, MEDICAID ==
[~2017-06-23 17:37] MED LIST changes: -VALA100059 PO
[2017-06-23 17:40] VITALS: BP 151/115
--- NOTE | 2017-06-23 17:51 | ER Report ---
History and Physical Time Seen By MD: 17:50 Hx. of Stated Complaint: PATIENT HAVING RIGHT FLANK PAIN, PATIENT DENIES nausea, vomiting, diarrhea. HPI/ROS CHIEF COMPLAINT: Right flank pain. HISTORY OF PRESENT ILLNESS: This is a well-known 42-year-old male who presents to the emergency department for right flank pain. Patient states that this morning he had right flank pain has since then resolved, he also felt short of breath earlier today but that his since then resolved. Patient also states that he is "here really for social services aide" as he is going to be evicted or homeless in August. I did tell the patient we do not have social services aide here at this time however I am willing to contact them and they can call him for a follow up to see if they can provide him with some information. Otherwise the patient is complaint free at this time. No chest pain or shortness of breath, no flank pain, no aches, rashes. REVIEW OF SYSTEMS: Respiratory: As above. Cardiovascular: No chest pain, no palpitations. Gastrointestinal: No vomiting, no abdominal pain. Musculoskeletal: As above. Allergies: Coded Allergies: No Known Drug Allergies (Unverified , 06/23/17) Home Meds Active Scripts Albuterol Sulfate (PROVENTIL HFA) 6.7 Gm Inh, 2 PUFF INH Q4-6H Y for difficulty breathing, #1 INH Prov:GISELLA ROSSI DO 03/05/17 Discontinued Scripts Hydroxyzine Hcl (HYDROXYZINE HCL) 25 Mg Tablet, 1-2 TAB PO Q6-8H Y for anxiety or sleep, #20 Prov:GISELLA ROSSI DO 03/05/17 Past Medical/Surgical History Patient has a past medical and surgical history of COPD, left collarbone fracture, wears glasses, anxiety, depression. Reviewed Nurses Notes: Yes Hx Smoking: Yes Smoking Status: Current: Every Day Smoker Hx Substance Use Disorder: No Hx Alcohol Use: No Constitutional Vital Sign - Last 24 Hours 06/23/17 06/23/17 06/23/17 06/23/17 17:40 18:11 18:11 18:14 Temp 98.2 Pulse 110 118 117 Resp 16 18 18 B/P (MAP) 151/115 Pulse Ox 91 98 O2 Delivery Room Air Room Air Physical Exam General Appearance: The patient is alert, has no immediate need for airway protection and no current signs of toxicity. Eyes: Pupils equal and round no injection. Respiratory: Chest is non tender, scant wheezes in the upper lobes bilaterally, otherwise clear. Cardiac: regular rate and rhythm Gastrointestinal: Abdomen is soft and non tender, no masses, bowel sounds normal. Musculoskeletal: Neck: Neck is supple and non tender. Extremities have full range of motion and are non tender. Skin: No rashes or lesions. DIFFERENTIAL DIAGNOSIS: After history and physical exam differential diagnosis was considered for abdominal pain including but not limited to appendicitis, cholecystitis, gastritis and urinary tract infection.shortness of breath including but not limited to pulmonary infectious process, COPD, asthma, pulmonary embolus and congestive heart failure. Medical Decision Making Data Points Laboratory Hematology Test 06/23/17 18:46 Urine Color Yellow Urine Clarity Clear Urine pH 5.0 pH (4.8-9.5) Urine Specific [place] 1.026 Urine Protein Negative mg/dL (NEGATIVE) Urine Glucose (UA) Negative mg/dL (NEGATIVE) Urine Ketones Trace mg/dL (NEGATIVE) Urine Blood Negative (NEGATIVE) Urine Nitrite Negative (NEGATIVE) Urine Bilirubin Negative (NEGATIVE) Urine Urobilinogen 2.0 mg/dL (0.2-1.9) Urine Leukocyte Esterase Negative (NEGATIVE) Urine RBC 1 /HPF (0-2/HPF) Urine WBC <1 /HPF (0-5/HPF) Urine Squamous Epithelial Cells Many /LPF (</=FEW) Urine Bacteria Negative /HPF (NONE-FEW) Urine Mucus Few /HPF (NONE-FEW) Chemistry Test 06/23/17 18:46 Urine Color Yellow Urine Clarity Clear Urine pH 5.0 pH (4.8-9.5) Urine Specific [place] 1.026 Urine Protein Negative mg/dL (NEGATIVE) Urine Glucose (UA) Negative mg/dL (NEGATIVE) Urine Ketones Trace mg/dL (NEGATIVE) Urine Blood Negative (NEGATIVE) Urine Nitrite Negative (NEGATIVE) Urine Bilirubin Negative (NEGATIVE) Urine Urobilinogen 2.0 mg/dL (0.2-1.9) Urine Leukocyte Esterase Negative (NEGATIVE) Urine RBC 1 /HPF (0-2/HPF) Urine WBC <1 /HPF (0-5/HPF) Urine Squamous Epithelial Cells Many /LPF (</=FEW) Urine Bacteria Negative /HPF (NONE-FEW) Urine Mucus Few /HPF (NONE-FEW) Urinalysis Test 06/23/17 18:46 Urine Color Yellow Urine Clarity Clear Urine pH 5.0 pH (4.8-9.5) Urine Specific [place] 1.026 Urine Protein Negative mg/dL (NEGATIVE) Urine Glucose (UA) Negative mg/dL (NEGATIVE) Urine Ketones Trace mg/dL (NEGATIVE) Urine Blood Negative (NEGATIVE) Urine Nitrite Negative (NEGATIVE) Urine Bilirubin Negative (NEGATIVE) Urine Urobilinogen 2.0 mg/dL (0.2-1.9) Urine Leukocyte Esterase Negative (NEGATIVE) Urine RBC 1 /HPF (0-2/HPF) Urine WBC <1 /HPF (0-5/HPF) Urine Squamous Epithelial Cells Many /LPF (</=FEW) Urine Bacteria Negative /HPF (NONE-FEW) Urine Mucus Few /HPF (NONE-FEW) ED Course/Re-evaluation ED Course The patient was admitted to room. A history and physical were obtained. Differential diagnoses were considered. Upon arrival the patient was complaint free, he states that really he wanted a social work consultation to discuss his concerns about becoming homeless in August as he states he will no longer have a home the live-in. I did explain to the patient we do not have social work at this time of night, however given his earlier complaints prior to arrival of flank pain as well as shortness of breath I did collect a urine which was negative. Patient did have some wheezing in the upper lobes, I did give him a DuoNeb which did seem to help. Patient became anxious and wanted to leave. The patient was discharged home via taxi. I was unable to send out a referral to social services aide however Radha, the nurse was able to call social work and leave them a message to contact the patient tomorrow for follow-up. Patient was also given the social services aide number here at the hospital for follow-up as well. Patient had no other questions or current concerns and was discharged home. Decision to Disposition Date: June 23, 2017 Decision to Disposition Time: 19:25 Depart Departure Latest Vital Signs Vital Signs Date Time Temp Pulse Resp B/P (MAP) Pulse Ox O2 Delivery O2 Flow Rate FiO2 06/23/17 18:14 117 18 06/23/17 18:11 98 Room Air 06/23/17 17:40 98.2 151/115 Impression: Primary Impression: Shortness of breath Condition: Improved Disposition: HOME OR SELF-CARE Patient Instructions: Dyspnea (ED) Additional Instructions: Drink plenty of fluids. Get plenty of rest. Take your medications as prescribed. You can try calling social work tomorrow if you haven't heard from them by mid afternoon, at [phone]. Return to the ED for any other concerns. AGATHA COLLINS BLADDER CLEANER-BC June 23, 2017 17:50
[2017-06-23] MEDS ORDERED: ALBUTEROL/IPRATROPIUM 3 ML NEB NEB ONE (18:05)
== END 2017-06-23 19:28 | disposition home or self-care (01) ==
LOC: ER 17:49
DX: R06.02 Shortness of breath (principal)
CPT/HCPCS: 81001; 94640; 99283; J7620

== ENCOUNTER → 2017-06-23 | Outpatient (CLI) | payer MEDICARE, MEDICAID ==
[~2017-06-23] MED LIST changes: +VALA100059 PO
== END ==
LOC: AMB 17:23
PROVIDERS: ATTEND Nurse Practitioner
DX: F41.9 Anxiety disorder, unspecified (principal)
CPT/HCPCS: A0425; A0429

== ENCOUNTER 2017-06-30 18:42 | Emergency (ER) | payer MEDICARE, MEDICAID ==
[~2017-06-30 18:42] MED LIST changes: -PANT40TA65 PO; -SUCR1TAB85 PO; -VALA100059 PO; -[UNRECOGNIZED DRUG - CODE]
--- NOTE | 2017-06-30 18:51 | ER Report ---
History and Physical Time Seen By MD: 18:51 Hx. of Stated Complaint: "IT LORA WHEN I GO POTTY" HPI/ROS CHIEF COMPLAINT: burning pain with bowel movement HISTORY OF PRESENT ILLNESS: This is a 42 year old male. He has been having burning pain when he has a bowel movement. The pain is in the anal area. He thinks it might be hemorrhoids. Wanting some cream to help the pain. Denies constipation or diarrhea. Pain present for several days. No problem with urination. Allergies: Coded Allergies: No Known Drug Allergies (Unverified , 06/23/17) Home Meds Active Scripts Valacyclovir Hcl (VALACYCLOVIR) 1,000 Mg Tablet, 1000 MG PO BID for 7 Days, #14 TAB 0 Refills Prov:GORDON GUTIERREZ MD 06/30/17 Albuterol Sulfate (PROVENTIL HFA) 6.7 Gm Inh, 2 PUFF INH Q4-6H Y for difficulty breathing, #1 INH Prov:GISELLA ROSSI DO 03/05/17 Discontinued Scripts Hydroxyzine Hcl (HYDROXYZINE HCL) 25 Mg Tablet, 1-2 TAB PO Q6-8H Y for anxiety or sleep, #20 Prov:GISELLA ROSSI DO 03/05/17 Reviewed Nurses Notes: Yes Hx Smoking: Yes Smoking Status: Current: Every Day Smoker Hx Substance Use Disorder: No Hx Alcohol Use: No Constitutional Vital Sign - Last 24 Hours 06/30/17 18:44 Pulse 109 Resp 20 Pulse Ox 94 O2 Delivery Room Air Physical Exam General appearance: Alert no distress. Respiratory: Chest is non tender, lungs are clear to auscultation. Cardiac: Regular rate and rhythm Abdomen soft, nontender to palpation. Rectal exam. Herpetiform rash in anal area. No hemorroids noted. No sign of fissure. DIFFERENTIAL DIAGNOSIS: After history and physical exam differential diagnosis was considered for herpes rash in the anal area with associated pain. Medical Decision Making ED Course/Re-evaluation ED Course Discussed with the patient that he has a herpes rash and will start Valacyclovir and use hydrocortison1% cream to help with pain. 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 We would like to have you take an antiviral medication called Valacyclovir 1000mg twice a day for 7 days. Apply hydrocortisone 1% cream twice a day. We recommend soaking the area in a bathtub with warm water twice a day. GORDON GUTIERREZ MD June 30, 2017 18:51
[2017-06-30] MEDS ORDERED: valACYclovir HCL 500 MG TAB PO ONE (19:00)
[2017-06-30] MEDS ORDERED: VALA100059 PO (19:01)
[2017-06-30] MEDS ORDERED: HYDROCORTISONE 1% CR 28.35 GM TP SCH (21:00)
== END 2017-06-30 19:10 | disposition home or self-care (01) ==
LOC: ER 19:02
DX: B00.9 Herpesviral infection, unspecified (principal)
CPT/HCPCS: 99283; A9270

== ENCOUNTER → 2017-06-30 | Outpatient (CLI) | payer MEDICARE, MEDICAID ==
[~2017-06-30] MED LIST changes: +PANT40TA65 PO; +SUCR1TAB85 PO; +VALA100059 PO; +[UNRECOGNIZED DRUG - CODE]
== END ==
LOC: AMB 18:31
PROVIDERS: ATTEND Nurse Practitioner
DX: K62.89 Other specified diseases of anus and rectum (principal)
CPT/HCPCS: A0425; A0429

== ENCOUNTER 2017-07-08 17:07 | Emergency (ER) | payer MEDICARE, MEDICAID ==
[~2017-07-08 17:07] MED LIST changes: -PANT40TA65 PO; -SUCR1TAB85 PO; -[UNRECOGNIZED DRUG - CODE]
[2017-07-08] MEDS ORDERED: [UNRECOGNIZED DRUG - CODE] (17:17)
--- NOTE | 2017-07-08 17:27 | ER Report ---
History and Physical Time Seen By MD: 17:26 Hx. of Stated Complaint: Patient with abdominal pain since 1200. Hx of ulcer. Took pepto bismal HPI/ROS CHIEF COMPLAINT: Abdominal pain, lump on left shoulder HISTORY OF PRESENT ILLNESS: 42-year-old male patient presents to emergency room with complaint of abdominal pain and a lump on the left shoulder. Patient states that he has been having epigastric abdominal pain since proximal a new one today. He states there is nothing seems to make the pain better or worse. States it feels like it did the last time he had an ulcer. He states last time he had an ulcer he took Pepto-Bismol for that which seemed to help. He denies any blood in his stool, he denies any nausea or vomiting. Patient states he did take some Pepto-Bismol which did not seem to help. Patient states he's had a lump on the left shoulder there is noticed for several years. He states that he' s never seen anyone for that. He is concerned as to what could be. He states that it is non-tender. REVIEW OF SYSTEMS: Respiratory: No cough, no dyspnea. Cardiovascular: No chest pain, no palpitations. Gastrointestinal: As noted above Musculoskeletal: No back pain. Allergies: Coded Allergies: No Known Drug Allergies (Unverified , 07/08/17) Home Meds Active Scripts Sucralfate (CARAFATE) 1 Gm Tablet, 1 GM PO QID, #60 TAB Take before meals and at bedtime. Crush the tablet and mix with water before taking. Prov:YIFAN ZELAYA 07/08/17 Pantoprazole Sodium (PANTOPRAZOLE SODIUM) 40 Mg Tablet.dr, 40 MG PO QDAY, #30 TAB.SR Prov:YIFAN ZELAYA 07/08/17 Albuterol Sulfate (PROVENTIL HFA) 6.7 Gm Inh, 2 PUFF INH Q4-6H Y for difficulty breathing, #1 INH Prov:GISELLA ROSSI DO 03/05/17 Reported Medications Fluphenazine Decanoate (FLUPHENAZINE DECANOATE) 25 Mg/1 Ml Vial 07/08/17 Discontinued Scripts Valacyclovir Hcl (VALACYCLOVIR) 1,000 Mg Tablet, 1000 MG PO BID for 7 Days, #14 TAB 0 Refills Prov:GORDON GUTIERREZ MD 06/30/17 Past Medical/Surgical History Patient has a past medical history of COPD, ulcer, left clavicle fracture, borderline schizophrenia, anxiety. Patient denies any surgical history. Reviewed Nurses Notes: Yes Hx Smoking: Yes Smoking Status: Current: Every Day Smoker Hx Substance Use Disorder: No Hx Alcohol Use: No Constitutional Vital Sign - Last 24 Hours 07/08/17 07/08/17 07/08/17 07/08/17 17:07 17:15 17:30 17:45 Temp 98.0 Pulse 109 106 100 100 Resp 22 B/P (MAP) 140/90 136/90 (105) 139/102 (114) Pulse Ox 92 92 91 93 O2 Delivery Room Air Physical Exam General Appearance: The patient is alert, has no immediate need for airway protection and no current signs of toxicity. Respiratory: Chest is non tender, lungs are clear to auscultation. Cardiac: regular rate and rhythm Gastrointestinal: Abdomen is soft and mildly tender in the epigastric region, no masses, bowel sounds normal. Musculoskeletal: Neck: Neck is supple and non tender. Extremities have full range of motion and are non tender. Skin: No rashes or lesions. Patient has lump on left shoulder, when pressed he does have a sebaceous discharge. DIFFERENTIAL DIAGNOSIS: After history and physical exam differential diagnosis was considered for epigastric abdominal pain, ulcer, sebaceous cyst. Medical Decision Making ED Course/Re-evaluation ED Course Patient was admitted to an exam room, history and physical were obtained. Differential diagnoses were considered. On examination patient has mild tenderness to the epigastric region, as well as what appears to be a sebaceous cyst on the left shoulder. When I press on it I am able to express out some sebaceous material. With the patient's consent the sebaceous cyst was indeed. Shortly after the patient arrived he was requesting a cheeseburger and wanted something to eat. I believe that his epigastric abdominal pain is not very significant. With him having a history of ulcer in with him stating that this feels exactly like that we will go ahead and treat him with Carafate and Protonix. Patient received his first dose here in the emergency room. We will go ahead and discharge patient home at this time. He is to keep the wound from the eye and even sebaceous cyst covered. He is follow-up with his primary care provider next week. He is return to the emergency room if condition worsens. I discussed this with the patient who verbalized understanding and agreement with plan. Procedure: I&D With patient's consent the area of the left shoulder was cleaned and anesthetized with 1% lidocaine. The patient stated he was adequately anesthetized a 1 cm incision was made in the cyst. I was able to express out significant amounts of sebaceous material. I was able to pull out a little bit of the cyst wall. The wound was covered with a dressing. Patient tolerated procedure well. I do not feel there is a need to place patient on antibiotics. He is to follow-up with his primary care provider for evaluation next week. Decision to Disposition Date: Jul 08, 2017 Decision to Disposition Time: 17:46 Depart Departure Latest Vital Signs Vital Signs Date Time Temp Pulse Resp B/P (MAP) Pulse Ox O2 Delivery O2 Flow Rate FiO2 07/08/17 17:45 100 93 07/08/17 17:30 139/102 (114) 07/08/17 17:07 98.0 22 Room Air Impression: Primary Impression: Epigastric abdominal pain Additional Impression: Sebaceous cyst Condition: Improved Disposition: HOME OR SELF-CARE New Scripts Sucralfate (CARAFATE) 1 Gm Tablet 1 GM PO QID, #60 TAB Take before meals and at bedtime. Crush the tablet and mix with water before taking. Prov: YIFAN ZELAYA 07/08/17 Pantoprazole Sodium (PANTOPRAZOLE SODIUM) 40 Mg Tablet. 40 MG PO QDAY, #30 TAB.SR Prov: YIFAN ZELAYA 07/08/17 Patient Instructions: Abdominal Pain (ED) Additional Instructions: Take medication as prescribed. Get plenty of rest. Increase fluid intake. Follow up with your primary care provider on Tuesday. Return to the ER if condition worsens. Problem Qualifiers YIFAN ZELAYA Jul 08, 2017 17:26
[2017-07-08 17:30] VITALS: BP 139/102
[2017-07-08] MEDS ORDERED: PANT40TA65 PO (17:40)
[2017-07-08] MEDS ORDERED: SUCR1TAB85 PO (17:40)
[2017-07-08] MEDS ORDERED: PANTOPRAZOLE SOD 40 MG TABEC PO ONE (17:50)
[2017-07-08] MEDS ORDERED: SUCRALFATE 1 GM TAB PO ONE (17:50)
== END 2017-07-08 18:12 | disposition home or self-care (01) ==
LOC: ER 17:12
DX: L72.3 Sebaceous cyst (principal); R10.13 Epigastric pain
CPT/HCPCS: 10060; 99283; A9270

== ENCOUNTER → 2017-07-08 | Outpatient (CLI) | payer MEDICARE, MEDICAID ==
[~2017-07-08] MED LIST changes: +PANT40TA65 PO; +SUCR1TAB85 PO; +VALA100059 PO; +[UNRECOGNIZED DRUG - CODE]
== END ==
LOC: AMB 16:57
PROVIDERS: ATTEND Nurse Practitioner
DX: R10.10 Upper abdominal pain, unspecified (principal)
CPT/HCPCS: A0425; A0429

== ENCOUNTER 2017-08-26 20:08 | Emergency (ER) | payer MEDICARE, MEDICAID ==
--- NOTE | 2017-08-26 20:04 | ER Report ---
History and Physical Time Seen By MD: 20:10 HPI/ROS CHIEF COMPLAINT: Shortness of breath after smoking cigarettes HISTORY OF PRESENT ILLNESS: 42-year-old male with a history of COPD, not O2 dependent, brought in by EMS from home after smoking a cigarette. He began to feel short of breath. Patient's presented with this presentation on previous occasions. Patient notes that he has producing's not like hair. When he uses his nebulizer. Patient notes lots of mucus. He denies fever or chills. He denies sputum color change. Patient denies chest pain. Patient denies leg swelling or calf pain. On arrival, patient appears in no acute distress. REVIEW OF SYSTEMS: Respiratory: As above Cardiovascular: No chest pain, no palpitations. Gastrointestinal: No vomiting, no abdominal pain. Musculoskeletal: No back pain. Allergies: Coded Allergies: No Known Drug Allergies (Unverified , 07/08/17) Home Meds Active Scripts Sucralfate (CARAFATE) 1 Gm Tablet, 1 GM PO QID, #60 TAB Take before meals and at bedtime. Crush the tablet and mix with water before taking. Prov:YIFAN ZELAYA [facility] 07/08/17 Pantoprazole Sodium (PANTOPRAZOLE SODIUM) 40 Mg Tablet.dr, 40 MG PO QDAY, #30 TAB.SR Prov:YIFAN ZELAYA [facility] 07/08/17 Albuterol Sulfate (PROVENTIL HFA) 6.7 Gm Inh, 2 PUFF INH Q4-6H Y for difficulty breathing, #1 INH Prov:GISELLA ROSSI DO 03/05/17 Reported Medications Fluphenazine Decanoate (FLUPHENAZINE DECANOATE) 25 Mg/1 Ml Vial 07/08/17 Hx Smoking: Yes Smoking Status: Current: Every Day Smoker Hx Substance Use Disorder: No Hx Alcohol Use: No Constitutional Vital Sign - Last 24 Hours 08/26/17 08/26/17 08/26/17 08/26/17 20:06 20:08 20:10 20:21 Temp 98.5 Pulse 118 119 119 116 Resp 16 14 14 B/P (MAP) 128/77 128/77 (94) Pulse Ox 90 92 O2 Delivery Room Air 08/26/17 20:23 Pulse 118 Pulse Ox 93 Physical Exam General Appearance: The patient is alert, has no immediate need for airway protection and no current signs of toxicity.. Vital signs stable, afebrile, pulse ox 90% HEENT: Pupils equal and round no injection. Oropharynx with mild erythema, no exudate or petechiae Respiratory: Chest is non tender, decreased breath sounds throughout, no wheezing or rails noted. Poor inspiratory effort CV: Regular rate and rhythm without murmur Gastrointestinal: Abdomen is soft and non tender, no masses, bowel sounds normal. Musculoskeletal: Neck: Neck is supple and non tender. No lymphadenopathy Extremities have full range of motion and are non tender. No edema, no calf tenderness Skin: No rashes or lesions. DIFFERENTIAL DIAGNOSIS: After history and physical exam differential diagnosis was considered for shortness of breath including but not limited to pulmonary infectious process, COPD, asthma, pulmonary embolus and congestive heart failure. Medical Decision Making ED Course/Re-evaluation ED Course Patient was admitted to an examination room by EMS. H&P was done. The differential diagnoses was considered. On clinical examination. Patient appears in no acute respiratory distress on arrival. His pulse ox is adequate. Patient's lungs show coarse breath sounds. He is treated with a DuoNeb. And prednisone 40 mg. On reevaluation at 45 minutes. Patient's lung phillips are clear to auscultation. Patient has pulse ox of 93% on room air. He is discharged home, advised to follow-up with his primary care Decision to Disposition Date: Aug 26, 2017 Decision to Disposition Time: 20:44 Depart Departure Latest Vital Signs Vital Signs Date Time Temp Pulse Resp B/P (MAP) Pulse Ox O2 Delivery O2 Flow Rate FiO2 08/26/17 20:23 118 93 08/26/17 20:21 14 08/26/17 20:08 128/77 (94) 08/26/17 20:06 98.5 Room Air Impression: Primary Impression: Dyspnea Additional Impression: COPD (chronic obstructive pulmonary disease) Condition: Improved Disposition: HOME OR SELF-CARE Patient Instructions: COPD (Chronic Obstructive Pulmonary Disease) (ED) Additional Instructions: Follow-up with your primary care if unimproved in 3-5 days Problem Qualifiers Primary Impression: Dyspnea Dyspnea type: unspecified Qualified Codes: R06.00 - Dyspnea, unspecified Additional Impression: COPD (chronic obstructive pulmonary disease) COPD type: unspecified COPD Qualified Codes: J44.9 - Chronic obstructive pulmonary disease, unspecified GISELLA ROSSI DO Aug 26, 2017 20:04
[2017-08-26 20:08] VITALS: BP 128/77
[2017-08-26] MEDS ORDERED: predniSONE 20 MG TAB PO ONE (20:10)
[2017-08-26] MEDS ORDERED: ALBUTEROL/IPRATROPIUM 3 ML NEB NEB ONE (20:10)
== END 2017-08-26 20:54 | disposition home or self-care (01) ==
LOC: ER 20:24
DX: J44.9 Chronic obstructive pulmonary disease, unspecified (principal); R06.02 Shortness of breath
CPT/HCPCS: 94640; 99283; J7512; J7620

== ENCOUNTER → 2017-08-26 | Outpatient (CLI) | payer MEDICARE, MEDICAID ==
[~2017-08-26] MED LIST changes: +PANT40TA65 PO; +SUCR1TAB85 PO; +[UNRECOGNIZED DRUG - CODE]
== END ==
LOC: AMB 19:53
PROVIDERS: ATTEND Nurse Practitioner
DX: J44.1 Chronic obstructive pulmonary disease with (acute) exacerbation (principal)
CPT/HCPCS: A0425; A0427

== ENCOUNTER 2017-10-03 03:39 | Emergency (ER) | payer MEDICARE, MEDICAID ==
[~2017-10-03 03:39] MED LIST changes: -AMOX-362 PO
[2017-10-03 03:41] VITALS: BP 132/88
--- NOTE | 2017-10-03 03:44 | ER Report ---
History and Physical Time Seen By MD: 03:44 HPI/ROS CHIEF COMPLAINT: dental pain HISTORY OF PRESENT ILLNESS: This is a 42 year old male. He is having dental pain. Several weeks now. Rated 3 on a 1-10 scale. Had dental work a couple of weeks ago. mainly in lower dental area. Called ambulance to bring him to the ER tonight. Has not tried over the counter medications. Allergies: Coded Allergies: No Known Drug Allergies (Unverified , 10/03/17) Home Meds Active Scripts Amoxicillin (AMOXICILLIN) 500 Mg Capsule, 1 CAP PO Q8H, #15 CAPSULE 0 Refills Prov:GORDON GUTIERREZ MD 10/03/17 Ketorolac Tromethamine (KETOROLAC TROMETHAMINE) 10 Mg Tab, 10 MG PO Q6H PRN for PAIN, #10 TAB 0 Refills Prov:GORDON GUTIERREZ MD 10/03/17 Albuterol Sulfate (PROVENTIL HFA) 6.7 Gm Inh, 2 PUFF INH Q4-6H PRN for difficulty breathing, #1 INH Prov:GISELLA ROSSI DO 03/05/17 Reported Medications Fluphenazine Decanoate (FLUPHENAZINE DECANOATE) 25 Mg/1 Ml Vial 07/08/17 Discontinued Scripts Sucralfate (CARAFATE) 1 Gm Tablet, 1 GM PO QID, #60 TAB Take before meals and at bedtime. Crush the tablet and mix with water before taking. Prov:YIFAN ZELAYA 07/08/17 Pantoprazole Sodium (PANTOPRAZOLE SODIUM) 40 Mg Tablet., 40 MG PO QDAY, #30 TAB.SR Prov:YIFAN ZELAYA [employer] 07/08/17 Reviewed Nurses Notes: Yes Hx Smoking: Yes Smoking Status: Current: Every Day Smoker Hx Substance Use Disorder: No Hx Alcohol Use: No Constitutional Vital Sign - Last 24 Hours 10/03/17 03:41 Temp 97.9 Pulse 105 Resp 19 B/P (MAP) 132/88 Pulse Ox 93 O2 Delivery Room Air Physical Exam Dental caries in lower front teeth, missing other bottom teeth. some redness of the gums, but no sign of abscess. Medical Decision Making ED Course/Re-evaluation ED Course Toradol and amoxicillin with instructions to follow-up with a dentist in the next 7-10 days. Decision to Disposition Date: Oct 03, 2017 Decision to Disposition Time: 04:01 Depart Departure Latest Vital Signs Vital Signs Date Time Temp Pulse Resp B/P (MAP) Pulse Ox O2 Delivery O2 Flow Rate FiO2 10/03/17 03:41 97.9 105 19 132/88 93 Room Air Impression: Primary Impression: Dental caries Condition: Improved Disposition: HOME OR SELF-CARE New Scripts Amoxicillin (AMOXICILLIN) 500 Mg Capsule 1 CAP PO Q8H, #15 CAPSULE 0 Refills Prov: GORDON GUTIERREZ MD 10/03/17 Ketorolac Tromethamine (KETOROLAC TROMETHAMINE) 10 Mg Tab 10 MG PO Q6H PRN for PAIN, #10 TAB 0 Refills Prov: GORDON GUTIERREZ MD 10/03/17 Patient Instructions: Dental Caries (ED) Additional Instructions: Make an appointment to see your dentist in the next 7--10 days. Take Amoxicillin 500mg three times a day Take Toradol 10mg, one every 6 hours as needed for pain. GORDON GUTIERREZ MD Oct 03, 2017 03:44
[2017-10-03] MEDS ORDERED: AMOXICILLIN 500 MG CAP PO ONE (03:55)
[2017-10-03] MEDS ORDERED: KETOROLAC TROM 10MG TAB PO ONE (03:55)
[2017-10-03] MEDS ORDERED: AMOX-362 PO (04:02)
[2017-10-03] MEDS ORDERED: KET10 PO (04:02)
[2017-10-03] MEDS ORDERED: KETOROLAC TROM 10 MG TAB TH PO ONE (04:05)
== END 2017-10-03 04:10 | disposition home or self-care (01) ==
LOC: ER 03:41
DX: K02.9 Dental caries, unspecified (principal)
CPT/HCPCS: 99283; A9270

== ENCOUNTER → 2017-10-03 | Outpatient (CLI) | payer MEDICARE, MEDICAID ==
[~2017-10-03] MED LIST changes: +AMOX-362 PO
== END ==
LOC: AMB 03:31
PROVIDERS: ATTEND Nurse Practitioner
DX: K08.89 Other specified disorders of teeth and supporting structures (principal)
CPT/HCPCS: A0425; A0429

== ENCOUNTER → 2017-10-16 | Outpatient (CLI) | payer MEDICARE, MEDICAID ==
[~2017-10-16] MED LIST changes: +AMOX-362 PO; +NAPR500T31 PO
== END ==
LOC: AMB 03:12
PROVIDERS: ATTEND Nurse Practitioner
DX: K08.89 Other specified disorders of teeth and supporting structures (principal); R68.84 Jaw pain
CPT/HCPCS: A0425; A0429

== ENCOUNTER 2018-02-12 15:05 | Emergency (ER) | payer MEDICARE, MEDICAID ==
[~2018-02-12 15:05] MED LIST changes: -ALBU2.5V36 NEB
--- NOTE | 2018-02-12 15:16 | ER Report ---
History and Physical Time Seen By MD: 15:16 Hx. of Stated Complaint: PT REPORTS SOB, ANXIETY, SWOLLEN ANKLES HPI/ROS CHIEF COMPLAINT: Intermittent shortness of breath HISTORY OF PRESENT ILLNESS: This is a 42 over male who presents to emergency department via EMS for intermittent shortness of breath. The patient is well- known to the emergency department. He states he's had intermittent shortness of breath for several months, he states that he is out of his nebulizer medicine and this is primarily why he is here. He states he has some intermittent achiness and intermittent swelling to the lower extremities. Continues to smoke a variable amount on a daily basis. Upon arrival via EMS patient does ambulate to the bathroom, steady gait. The patient does not appear to be in distress. No nausea or vomiting. No chest pain. No other complaints at this time. REVIEW OF SYSTEMS: Constitutional: No fever, no chills. Eyes: No discharge. ENT: No sore throat. Cardiovascular: No chest pain, no palpitations. Respiratory: As above. Gastrointestinal: No abdominal pain, no vomiting. Genitourinary: No hematuria. Musculoskeletal: As above. Skin: No rashes. Neurological: No headache. Allergies: Coded Allergies: No Known Drug Allergies (Unverified , 10/16/17) Home Meds Active Scripts Albuterol Sulfate 0.083% (ALBUTEROL SULFATE 0.083%) 2.5 Mg/3 Ml Vial.neb, 2.5 MG NEB Q4-6H PRN for SHORTNESS OF BREATH, #20 VIAL 0 Refills Prov:AGATHA COLLINS [employer] 02/12/18 Discontinued Reported Medications Fluphenazine Decanoate (FLUPHENAZINE DECANOATE) 25 Mg/1 Ml Vial 07/08/17 Discontinued Scripts Naproxen (NAPROXEN) 500 Mg Tablet, 500 MG PO BID PRN for PAIN, #14 TAB Prov:GISELLA ROSSI DO 10/16/17 Albuterol Sulfate (PROVENTIL HFA) 6.7 Gm Inh, 2 PUFF INH Q4-6H PRN for difficulty breathing, #1 INH Prov:GISELLA ROSSI DO 03/05/17 Past Medical/Surgical History The patient has a past medical and surgical history of COPD, gastric ulcer, left collarbone fracture, dental caries, multiple dental extractions, wears glasses, Beth schizophrenia, anxiety. Reviewed Nurses Notes: Yes Hx Smoking: Yes Smoking Status: Current: Every Day Smoker Hx Substance Use Disorder: No Hx Alcohol Use: No Constitutional Vital Sign - Last 24 Hours 02/12/18 02/12/18 02/12/18 02/12/18 15:05 15:08 15:17 15:20 Temp 97.9 Pulse ??? 109 101 Resp 20 B/P (MAP) 125/89 135/104 (114) Pulse Ox 95 93 O2 Delivery Room Air 02/12/18 02/12/18 02/12/18 02/12/18 15:23 15:30 15:35 15:50 Temp 97.8 Pulse 100 103 Resp 14 28 B/P (MAP) 127/88 (101) Pulse Ox 90 91 02/12/18 02/12/18 02/12/18 02/12/18 15:56 15:56 16:00 16:05 Pulse 79 86 Resp 16 20 B/P (MAP) 125/80 (95) Pulse Ox 92 90 O2 Delivery Room Air 02/12/18 02/12/18 02/12/18 02/12/18 16:20 16:21 16:30 16:35 Pulse 91 103 Resp 21 B/P (MAP) 122/91 (101) 125/89 (101) Pulse Ox 94 95 Physical Exam General Appearance: The patient is alert, has no immediate need for airway protection and no signs of toxicity. Eyes: Pupils equal and round no pallor or injection. ENT, Mouth: Mucous membranes are moist. Respiratory: There are no retractions, lungs are clear to auscultation. Cardiovascular: Regular rate and rhythm, no murmurs, clicks or rubs. Gastrointestinal: Abdomen is soft and non tender, no masses, bowel sounds norm al. Neurological: Alert and oriented 4. Moving all extremities. Following. No focal neuro deficits. Skin: Warm and dry, no rashes. Musculoskeletal: Neck is supple non tender. Extremities are nontender, nonswollen and have full range of motion. DIFFERENTIAL DIAGNOSIS: After history and physical exam differential diagnosis was considered for shortness of breath including but not limited to pulmonary infectious process, COPD, asthma, pulmonary embolus and congestive heart failure. Medical Decision Making EKG/Imaging EKG Interpretation 12 lead EKG: Time of EKG 1518. Rhythm: Sinus tachycardia, ventricular rate 106 bpm. [place]: normal QRS: normal ST segments: No ST depression or elevation identified. Poor T wave progression. Skin changes from the 03/05/2017 EKG. Imaging PATIENT NAME: Mao Aden : 1975 MR: [id number] V: [id number] EXAM DATE: ORDERING PHYSICIAN: AGATHA COLLINS TECHNOLOGIST: Location: [facility] Patient: Mao Aden : 1975 Visit/Account:[id number] Date of Sevice: 02/12/2018 2 VIEWS CHEST INDICATION: Intermittent shortness of breath. COMPARISON: 06/15/2017. FINDINGS: Cardiac silhouette remains enlarged and unchanged. This is present be due to prominent pericardial fat seen on the previous CT scan of chest on 06/15/2017. Mediastinal silhouette and pulmonary vessels within normal limits. There is no focal infiltrate or lobar consolidation. There is no pneumothorax or pleural effusion. No nodule. Chronic interstitial changes. No acute bony abnormality. Appearance of old left clavicular fracture. Upper abdomen is unremarkable. IMPRESSION: 1. No acute cardiopulmonary process. Report Dictated By: Juan Rodriguez at 02/12/2018 4:35 PM Report E-Signed By: Juan Rodriguez at 02/12/2018 4:37 PM WSN:DEYSIDiyaRosa Maria ED Course/Re-evaluation ED Course The patient was admitted to room. A history and physical were obtained. Differential diagnoses were considered. After discussion with patient he apparently wanted a refill on his albuterol nebulizer, I did however evaluate a little bit further with EKG, no significant changes from previous EKGs, chest x- ray was negative for any acute cardiopulmonary process. Patient was given a DuoNeb, patient states he had significant relief with the DuoNeb. A prescription was sent to the patient's pharmacy for albuterol nebulizer bullets. I did recommend that the patient establishes with a primary care provider for routine follow-up, the patient states he will look around for a primary care provider, I did tell him we have a sheet with the local providers, he declined. The patient had no other questions or concerns at this time and was discharged home. Decision to Disposition Date: Feb 12, 2018 Decision to Disposition Time: 16:49 Depart Departure Latest Vital Signs Vital Signs Date Time Temp Pulse Resp B/P (MAP) Pulse Ox O2 Delivery O2 Flow Rate FiO2 02/12/18 16:35 103 21 95 02/12/18 16:30 125/89 (101) 02/12/18 15:56 Room Air 02/12/18 15:23 97.8 Impression: Primary Impression: Shortness of breath Additional Impression: Medication refill Condition: Improved Disposition: HOME OR SELF-CARE New Scripts Albuterol Sulfate 0.083% (ALBUTEROL SULFATE 0.083%) 2.5 Mg/3 Ml Vial.neb 2.5 MG NEB Q4-6H PRN for SHORTNESS OF BREATH, #20 VIAL 0 Refills Prov: AGATHA COLLINS 02/12/18 Patient Instructions: Dyspnea (ED) Additional Instructions: Please establish with a new primary care provider within one to 2 weeks for reevaluation. I have refilled your albuterol, use as needed. Please cut back on smoking as this will help with your shortness of breath. Be sure to drink plenty of water. Get plenty of rest. When you are not walking, keep your legs elevated to waist level, this will h elp with the swelling in your feet. Return to the ED for any other concerns or worsening symptoms. Problem Qualifiers AGATHA COLLINS-PATRICIA Feb 12, 2018 15:16
[2018-02-12] MEDS ORDERED: ALBUTEROL/IPRATROPIUM 3 ML NEB NEB ONE (15:40)
[2018-02-12 16:30] VITALS: BP 125/89
--- NOTE | 2018-02-12 16:41 | RADIOLOGY IMAGING REPORT ---
FACILITY: [facility] - [place] PATIENT NAME: Mao Aden : 1975 MR: [id number] V: [id number] EXAM DATE: ORDERING PHYSICIAN: AGATHA COLLINS TECHNOLOGIST: Location: [facility] Patient: Mao Aden : 1975 Visit/Account:[id number] Date of Sevice: 02/12/2018 2 VIEWS CHEST INDICATION: Intermittent shortness of breath. COMPARISON: 06/15/2017. FINDINGS: Cardiac silhouette remains enlarged and unchanged. This is present be due to prominent pericardial f at seen on the previous CT scan of chest on 06/15/2017. Mediastinal silhouette and pulmonary vessels w ithin normal limits. There is no focal infiltrate or lobar consolidation. There is no pneumothorax or pleural effusion. No nodule. Chronic interstitial changes. No acute bony abnormality. Appearance of old left clavicu lar fracture. Upper abdomen is unremarkable. IMPRESSION: 1. No acute cardiopulmonary process. Report Dictated By: Juan Rodriguez at 02/12/2018 4:35 PM Report E-Signed By: Juan Rodriguez at 02/12/2018 4:37 PM WSN:[id number]
--- NOTE | 2018-02-12 16:47 | EKG ---
FACILITY: [facility] PATIENT NAME: VIET PERAZA : [id number] MR: [id number] V: [id number] EXAM DATE: ORDERING PHYSICIAN: AGATHA COLLINS TECHNOLOGIST: CAT Test Reason : SOB, SWOLLEN Blood Pressure : / mmHG Vent. Rate : 106 BPM Atrial Rate : 106 BPM P-R Int : 124 ms QRS Dur : 088 ms QT Int : 334 ms P-R-T Axes : 036 034 033 degrees QTc Int : [address] No [address]-T abnormalities When compared with ECG of 15-JUN-2017 17:51, No significant change was found Confirmed by CORETTA MARC ([id number]) on 02/12/2018 7:19:18 PM Referred By: KARON Confirmed By:CORETTA MARC
[2018-02-12] MEDS ORDERED: ALBU2.5V36 NEB (16:51)
== END 2018-02-12 17:10 | disposition home or self-care (01) ==
LOC: ER 15:24
DX: Z76.0 Encounter for issue of repeat prescription (principal); R06.02 Shortness of breath; F17.210 Nicotine dependence, cigarettes, uncomplicated
CPT/HCPCS: 71046; 93005; 94640; 99284; J7620

== ENCOUNTER → 2018-02-12 | Outpatient (CLI) | payer MEDICARE, MEDICAID ==
[~2018-02-12] MED LIST changes: +ALBU2.5V36 NEB
== END ==
LOC: AMB 14:53
PROVIDERS: ATTEND Nurse Practitioner
DX: J80 Acute respiratory distress syndrome (principal)
CPT/HCPCS: A0425; A0429

== ENCOUNTER 2018-04-11 11:15 | Emergency (ER) | payer MEDICARE, MEDICAID ==
[~2018-04-11 11:15] MED LIST changes: +ALBU2.5V36 NEB
[2018-04-11 11:17] VITALS: BP 130/109
--- NOTE | 2018-04-11 11:31 | ER Report ---
History and Physical Time Seen By MD: 11:30 Hx. of Stated Complaint: CONGESTION HPI/ROS CHIEF COMPLAINT: Congestion and nausea HISTORY OF PRESENT ILLNESS: This is a 43-year-old male presents to the emergency department for nasal congestion and nausea. Patient states that today when he woke up he developed upper respiratory type symptoms, including nasal congestion, nausea no vomiting. He became concerned decided coming to the ER for further evaluation. Intermittent nonproductive cough. No rashes, no chest pain, no shortness of breath. REVIEW OF SYSTEMS: Respiratory: As above. Cardiovascular: No chest pain, no palpitations. Gastrointestinal: As above. Musculoskeletal: No back pain. Allergies: Coded Allergies: No Known Drug Allergies (Unverified , 10/16/17) Home Meds Active Scripts Albuterol Sulfate 0.083% (ALBUTEROL SULFATE 0.083%) 2.5 Mg/3 Ml Vial.neb, 2.5 MG NEB Q4-6H PRN for SHORTNESS OF BREATH, #20 VIAL 0 Refills Prov:AGATHA COLLINS SCIENCE SPECIALIST- 02/12/18 Past Medical/Surgical History Patient has a past medical and surgical history of COPD, gastric ulcer, left collarbone fracture, dental caries, wears glasses, borderline schizophrenia, anxiety. Reviewed Nurses Notes: Yes Hx Smoking: Yes Smoking Status: Current: Every Day Smoker Hx Substance Use Disorder: No Hx Alcohol Use: No Constitutional Vital Sign - Last 24 Hours 04/11/18 11:17 Pulse 130 Resp 20 B/P (MAP) 130/109 Pulse Ox 93 O2 Delivery Room Air Physical Exam General Appearance: The patient is alert, has no immediate need for airway protection and no current signs of toxicity. Eyes: Pupils equal and round no injection. Respiratory: Mildly diminished throughout, otherwise no other adventitious lung sounds. Cardiac: regular rate and rhythm, no murmurs, clicks or rubs. Gastrointestinal: Abdomen is round, soft and non tender, no masses, bowel sounds normal. Musculoskeletal: Neck: Neck is supple and non tender. Extremities have full range of motion and are non tender. Skin: No rashes or lesions. DIFFERENTIAL DIAGNOSIS: After history and physical exam differential diagnosis was considered for influenza, URI, viral syndrome, strep throat, pneumonia, gastroenteritis. Medical Decision Making Data Points Laboratory Hematology Test 04/11/18 11:34 Influenza Virus Type A (PCR) Negative (NEGATIVE) Influenza Virus Type B (PCR) Negative (NEGATIVE) Chemistry Test 04/11/18 11:34 Influenza Virus Type A (PCR) Negative (NEGATIVE) Influenza Virus Type B (PCR) Negative (NEGATIVE) EKG/Imaging Imaging Location: [facility] [place] Patient: Mao Aden : 1975 Visit/Account:[id number] Date of Sevice: 04/11/2018 Exam type: CHEST PA LAT History: Cough, mild smoking history Comparison: February 12, 2018. Findings: There are hypoventilatory changes from a limited inspiratory effort. There is crowding the bronchovascular markings bilaterally.. Mild interstitial prominence of the lungs may be related to hypoventilatory changes although interstitial infiltrates not entirely excluded given the clinical history. There is no evidence of a pneumothorax or pneumomediastinum. There is left apical pleural thickening that appears similar to the prior study. The cardiac silhouette appears enlarged but unchanged. This is related to a prominent epicardial fat pad as seen on the recent CTA of the chest from June 15, 2017 IMPRESSION: Hypoventilatory changes from a limited inspiratory effort producing crowding the bronchovascular markings bilaterally Mild interstitial prominence of the lungs may be related to hypoventilatory changes although interstitial infiltrates not entirely excluded given the clinical history. Report Dictated By: Olivia Harris MD at 04/11/2018 12:17 PM Report E-Signed By: Olivia Harris MD at 04/11/2018 12:19 PM WSN:[email or web address] ED Course/Re-evaluation ED Course Patient was admitted to room. A history and physical were obtained. Differential diagnoses were considered. Patient was tested for influenza which was negative, discussed this with the patient, did tell him this is likely an upper respiratory infection caused by another virus. He was given 1 ODT Zofran, this did relieve his nausea. He declined any other needs at this time, patient will follow[facility] with [facility] and his primary care provider as needed and discharged home. Decision to Disposition Date: Apr 11, 2018 Decision to Disposition Time: 12:36 Depart Departure Latest Vital Signs Vital Signs Date Time Temp Pulse Resp B/P (MAP) Pulse Ox O2 Delivery O2 Flow Rate FiO2 04/11/18 11:17 130 20 130/109 93 Room Air Impression: Primary Impression: URI (upper respiratory infection) Condition: Improved Disposition: HOME OR SELF-CARE Patient Instructions: Viral Syndrome (ED) Additional Instructions: No concerning findings on the chest x-ray. Please follow-up with your primary care provider within one week for reevaluation. Follow-up with [facility] as needed. Be sure to drink plenty of water. Get plenty of rest. Return to the ER for any other concerns or worsening symptoms. Problem Qualifiers Primary Impression: URI (upper respiratory infection) URI type: unspecified viral URI Qualified Codes: J06.9 - Acute upper respiratory infection, unspecified AGATHA COLLINS SCIENCE SPECIALIST-BC Apr 11, 2018 11:31
[2018-04-11] MEDS ORDERED: ONDANSETRON 4 MG ODT TABDP SL ONE (11:40)
--- NOTE | 2018-04-11 12:23 | RADIOLOGY IMAGING REPORT ---
FACILITY: [facility] - [place] PATIENT NAME: Mao Aden : 1975 MR: [id number] V: [id number] EXAM DATE: ORDERING PHYSICIAN: AGATHA COLLINS TECHNOLOGIST: Location: [facility] - [place] Patient: Mao Aden : 1975 Visit/Account:[id number] Date of Sevice: 04/11/2018 Exam type: CHEST PA LAT History: Cough, mild smoking history Comparison: February 12, 2018. Findings: There are hypoventilatory changes from a limited inspiratory effort. There is crowding the bronchova scular markings bilaterally.. Mild interstitial prominence of the lungs may be related to hypoventil atory changes although interstitial infiltrates not entirely excluded given the clinical history. Th ere is no evidence of a pneumothorax or pneumomediastinum. There is left apical pleural thickening t hat appears similar to the prior study. The cardiac silhouette appears enlarged but unchanged. This is related to a prominent epicardial fat pad as seen on the recent CTA of the chest from June 15, 2017 IMPRESSION: Hypoventilatory changes from a limited inspiratory effort producing crowding the bronchovascular [place] ings bilaterally Mild interstitial prominence of the lungs may be related to hypoventilatory changes although intersti tial infiltrates not entirely excluded given the clinical history. Report Dictated By: Olivia Harris MD at 04/11/2018 12:17 PM Report E-Signed By: Olivia Harris MD at 04/11/2018 12:19 PM WSN:[email or web address]
== END 2018-04-11 12:40 | disposition home or self-care (01) ==
LOC: ER 11:37
DX: J06.9 Acute upper respiratory infection, unspecified (principal); J44.9 Chronic obstructive pulmonary disease, unspecified; F17.200 Nicotine dependence, unspecified, uncomplicated
CPT/HCPCS: 71046; 87502; 99283; Q0162; S0119

== ENCOUNTER 2018-06-28 03:36 | Emergency (ER) | payer MEDICARE, MEDICAID ==
[~2018-06-28 03:36] MED LIST changes: -ONDA4TAB9 PO
[2018-06-28 03:41] VITALS: BP 147/80
[2018-06-28] MEDS ORDERED: MAG HYD/AL HYD/SIMETH 30ML UDC PO ONE (04:05)
[2018-06-28] MEDS ORDERED: PANTOPRAZOLE SOD 40 MG IV VIAL IVP ONE (04:05)
[2018-06-28] MEDS ORDERED: NS(*) 0.9% 1000 ML BAG 1,000 ML IV ONE (04:05)
[2018-06-28] MEDS ORDERED: ONDANSETRON 4 MG/2 ML VIAL IVP ONE (04:05)
[2018-06-28] MEDS ORDERED: ATRO/SCOPOL/HYOSCY/PB 5 ML ELX PO ONE (04:05)
[2018-06-28] MEDS ORDERED: LIDOCAINE 2% VISC SLN 15ML UDC PO ONE (04:05)
--- NOTE | 2018-06-28 04:09 | ER Report ---
History and Physical Time Seen By MD: 03:53 Hx. of Stated Complaint: abdominal pain. doesn't know when it started. "thinks it's hurting" "wants some pain killers". ate some dairy product that turned his stomache inside out HPI/ROS CHIEF COMPLAINT: abdominal pain HISTORY OF PRESENT ILLNESS: This is a 43 year old male. He awoke tonight with abdominal pain. Has epigastric pain. Nausea, but no vomiting. Has history of ulcer disease in past. He thinks he might had had some bad coffee creamer. Has no diarrhea. Denies any other bad food or liquid intake. Wants some kind of pain killer to make the pain go away. No shortness of breath or cough. No fevers. No chest pain or shortness of breath. Allergies: Coded Allergies: No Known Drug Allergies (Unverified , 06/28/18) Home Meds Active Scripts Ondansetron 4 Mg Odt (ONDANSETRON 4 MG ODT) 4 Mg Tab.rapdis, 4 MG PO Q6H PRN for NAUSEA/VOMITING, #20 TAB 0 Refills Prov:GORDON GUTIERREZ MD 06/28/18 Albuterol Sulfate 0.083% (ALBUTEROL SULFATE 0.083%) 2.5 Mg/3 Ml Vial.neb, 2.5 MG NEB Q4-6H PRN for SHORTNESS OF BREATH, #20 VIAL 0 Refills Prov:AGATHA COLLINS REQUIREMENTS MANAGER-BC 02/12/18 Reviewed Nurses Notes: Yes Hx Smoking: Yes Smoking Status: Current: Every Day Smoker Hx Substance Use Disorder: No Hx Alcohol Use: No Constitutional Physical Exam General Appearance: The patient is alert. No acute distress. Eyes: Pupils are equal, round. Reactive to light. No pallor, injection or icterus. ENT: Mucous membranes are moist. Normal oral mucosa. Posterior oropharynx is normal. Neck: Supple and non tender. Respiratory: Lungs are clear to auscultation. Cardiovascular: Regular rate and rhythm. No murmurs, gallops or rubs. Normal capillary refill. Gastrointestinal: Abdomen is soft, discomfort in epigastric area. No masses or organomegaly. Normal active bowel sounds. No costovertebral angle tenderness with percussion. Neurological: Alert and oriented x3. No focal neurologic deficits in the extremities. Skin: Warm and dry. Musculoskeletal: Extremities are nontender. No tenderness in palpation of the cervical, thoracic and lumbar spine. DIFFERENTIAL DIAGNOSIS: After history and physical exam, differential diagnosis was considered for epigastric pain including but not limited to biliary colic, cholecystitis, peptic ulcer disease, pancreatitis, and gastroenteritis. Medical Decision Making Data Points Laboratory Hematology Test 06/28/18 04:13 Red Blood Count 4.81 M/uL (4.00-5.60) Mean Corpuscular Volume 89.5 fL (80.0-96.0) Mean Corpuscular Hemoglobin 30.8 pg (26.0-33.0) Mean Corpuscular Hemoglobin Concent 34.4 g/dL (32.0-36.0) Red Cell Distribution Width 13.6 % (11.5-14.5) Mean Platelet Volume 9.2 fL (7.2-11.1) Neutrophils (%) (Auto) 71.1 % (39.4-72.5) Lymphocytes (%) (Auto) 17.9 % (17.6-49.6) Monocytes (%) (Auto) 7.9 % (4.1-12.4) Eosinophils (%) (Auto) 1.8 % (0.4-6.7) Basophils (%) (Auto) 1.3 % (0.3-1.4) Nucleated RBC Relative Count (auto) 0.0 /100WBC Neutrophils # (Auto) 9.9 K/uL (2.0-7.4) Lymphocytes # (Auto) 2.5 K/uL (1.3-3.6) Monocytes # (Auto) 1.1 K/uL (0.3-1.0) Eosinophils # (Auto) 0.2 K/uL (0.0-0.5) Basophils # (Auto) 0.2 K/uL (0.0-0.1) Nucleated RBC Absolute Count (auto) 0.00 K/uL Sodium Level 138 mmol/L (137-145) Potassium Level 4.2 mmol/L (3.5-5.0) Chloride Level 108 mmol/L (98-107) Carbon Dioxide Level 23 mmol/L (22-30) Blood Urea Nitrogen 13 mg/dl (9-21) Creatinine 1.00 mg/dl (0.66-1.25) Glomerular Filtration Rate Calc > 60.0 Random Glucose 113 mg/dl (75-110) Calcium Level 9.5 mg/dl (8.4-10.2) Total Bilirubin < 0.1 mg/dl (0.2-1.3) Aspartate Amino Transf (AST/SGOT) 21 U/L (0-35) Alanine Aminotransferase (ALT/SGPT) 41 U/L (0-56) Alkaline Phosphatase 86 U/L (0-126) Total Protein 6.8 g/dl (6.3-8.2) Albumin 4.0 g/dl (3.5-5.0) Amylase Level 66 U/L (0-110) Lipase 142 U/L (23-300) Chemistry Test 06/28/18 04:13 White Blood Count 14.0 k/uL (4.5-11.0) Red Blood Count 4.81 M/uL (4.00-5.60) Hemoglobin 14.8 g/dL (14.0-18.0) Hematocrit 43.1 % (42.0-52.0) Mean Corpuscular Volume 89.5 fL (80.0-96.0) Mean Corpuscular Hemoglobin 30.8 pg (26.0-33.0) Mean Corpuscular Hemoglobin Concent 34.4 g/dL (32.0-36.0) Red Cell Distribution Width 13.6 % (11.5-14.5) Platelet Count 210 K/uL (150-450) Mean Platelet Volume 9.2 fL (7.2-11.1) Neutrophils (%) (Auto) 71.1 % (39.4-72.5) Lymphocytes (%) (Auto) 17.9 % (17.6-49.6) Monocytes (%) (Auto) 7.9 % (4.1-12.4) Eosinophils (%) (Auto) 1.8 % (0.4-6.7) Basophils (%) (Auto) 1.3 % (0.3-1.4) Nucleated RBC Relative Count (auto) 0.0 /100WBC Neutrophils # (Auto) 9.9 K/uL (2.0-7.4) Lymphocytes # (Auto) 2.5 K/uL (1.3-3.6) Monocytes # (Auto) 1.1 K/uL (0.3-1.0) Eosinophils # (Auto) 0.2 K/uL (0.0-0.5) Basophils # (Auto) 0.2 K/uL (0.0-0.1) Nucleated RBC Absolute Count (auto) 0.00 K/uL Glomerular Filtration Rate Calc > 60.0 Calcium Level 9.5 mg/dl (8.4-10.2) Total Bilirubin < 0.1 mg/dl (0.2-1.3) Aspartate Amino Transf (AST/SGOT) 21 U/L (0-35) Alanine Aminotransferase (ALT/SGPT) 41 U/L (0-56) Alkaline Phosphatase 86 U/L (0-126) Total Protein 6.8 g/dl (6.3-8.2) Albumin 4.0 g/dl (3.5-5.0) Amylase Level 66 U/L (0-110) Lipase 142 U/L (23-300) EKG/Imaging Imaging ACUTE ABDOMEN SERIES 3 VIEW HISTORY: Epigastric pain. COMPARISON: Most recent chest x-ray 04/11/2018. CT abdomen pelvis 05/30/2017. Acute abdominal series 07/07/2016. TECHNIQUE: PA upright view of the chest, AP supine and AP upright views of the abdomen. Chest: The lungs are clear. There is stable asymmetric pleural scarring or thickening, left greater than right. No pleural effusion. Cardiac silhouette is at the upper limits of normal, stable. The mediastinal silhouette is normal. Bones and soft tissues are unremarkable. Abdomen: The distribution of bowel gas is normal, with bowel in all four quadrants as well as centrally. No free air. No dilated loops of bowel. No acute osseous abnormality. There is slight leftward curvature of the lumbar spine. There are pelvic phleboliths. IMPRESSION: 1. No acute cardiopulmonary process. 2. Unremarkable bowel gas pattern without obstruction. Report Dictated By: Samira Woods at 06/28/2018 5:28 AM ED Course/Re-evaluation Clinical Indication for ER IV: Hydration, IV Access ED Course Evaluation with x-ray and labs was unremarkable. He had some improvement with the GI cocktail and some IV Protonix. Decision to Disposition Date: June 28, 2018 Decision to Disposition Time: 05:37 Depart Departure Latest Vital Signs Impression: Primary Impression: Dyspepsia Condition: Improved Disposition: HOME OR SELF-CARE New Scripts Ondansetron 4 Mg Odt (ONDANSETRON 4 MG ODT) 4 Mg Tab.rapdis 4 MG PO Q6H PRN for NAUSEA/VOMITING, #20 TAB 0 Refills Prov: GORDON GUTIERREZ MD 06/28/18 Patient Instructions: Epigastric Pain (ED) Additional Instructions: Your stomach pain could have been due to bad food or stomach acid problems. Take Zantac 150mg twice a day for Pepcid 20mg twice a day. Zofran 4mg, one every 6 hours as needed for nausea. Please establish with a primary care provider and follow-up in the next 1-2 weeks. GORDON GUTIERREZ MD June 28, 2018 04:09
[2018-06-28 04:22] LABS: PLATELET COUNT, AUTOMATED 210 K/uL (150-450)
--- NOTE | 2018-06-28 05:34 | RADIOLOGY IMAGING REPORT ---
FACILITY: [facility] PATIENT NAME: Mao Aden : 1975 MR: [id number] V: [id number] EXAM DATE: ORDERING PHYSICIAN: GORDON GUTIERREZ TECHNOLOGIST: Location: [facility] Patient: Mao Aden : 1975 Visit/Account:[id number] Date of Sevice: 06/28/2018 ACUTE ABDOMEN SERIES 3 VIEW HISTORY: Epigastric pain. COMPARISON: Most recent chest x-ray 04/11/2018. CT abdomen pelvis 05/30/2017. Acute abdominal series 06/09. TECHNIQUE: PA upright view of the chest, AP supine and AP upright views of the abdomen. Chest: The lungs are clear. There is stable asymmetric pleural scarring or thickening, left greater t grider right. No pleural effusion. Cardiac silhouette is at the upper limits of normal, stable. The medi astinal silhouette is normal. Bones and soft tissues are unremarkable. Abdomen: The distribution of bowel gas is normal, with bowel in all four quadrants as well as central ly. No free air. No dilated loops of bowel. No acute osseous abnormality. There is slight leftward cu rvature of the lumbar spine. There are pelvic phleboliths. IMPRESSION: 1. No acute cardiopulmonary process. 2. Unremarkable bowel gas pattern without obstruction. Report Dictated By: Samira Woods at 06/28/2018 5:28 AM Report E-Signed By: Samira Woods at 06/28/2018 5:30 AM WSN:[id number]
[2018-06-28] MEDS ORDERED: ONDA4TAB9 PO (05:39)
[2018-06-28] MEDS ORDERED: ONDANSETRON 4 MG ODT TH SL ONE (05:40)
== END 2018-06-28 05:48 | disposition home or self-care (01) ==
LOC: ER 03:45
DX: R10.13 Epigastric pain (principal)
CPT/HCPCS: 74022; 82150; 83690; 85025; 96361; 96374; 96375; 99284; A9270; C9113; J2405; J7030; Q0162; 82040; 82247; 82310; 82374; 82435; 82565; 82947; 84075; 84132; 84155; 84295; 84450; 84460; 84520; S0119

== ENCOUNTER → 2018-06-28 | Outpatient (CLI) | payer MEDICARE, MEDICAID ==
[~2018-06-28] MED LIST changes: +ONDA4TAB9 PO
== END ==
LOC: AMB 03:26
PROVIDERS: ATTEND Nurse Practitioner
DX: R10.84 Generalized abdominal pain (principal)
CPT/HCPCS: A0425; A0429